=== PATIENT | female | born 1960 ===

== ENCOUNTER 2017-02-23 07:45 | Inpatient (IN) ==
[2017-02-23] MEDS ORDERED: ONDANSETRON 4 MG/2 ML VIAL IV PRN (10:26)
[2017-02-23] MEDS ORDERED: ACETAMINOPHEN 325 MG TABLET PO PRN (10:26)
[2017-02-23] MEDS ORDERED: DEXTROSE 50% 25 GM/50 ML VIAL IV PRN (10:26)
[2017-02-23] MEDS ORDERED: LACTULOSE 20 GM/30 ML UDCUP PO PRN (10:26)
[2017-02-23] MEDS ORDERED: GLUCAGON 1 MG VIAL IM PRN (10:26)
[2017-02-23] MEDS ORDERED: ZALEPLON 5 MG CAPSULE PO PRN (10:26)
[2017-02-23] MEDS ORDERED: SODIUM CHLORIDE 0.9% 1,000 ML IV SCH (10:30)
--- NOTE | 2017-02-23 10:44 | Hospitalist History & Physical ---
<Roberto Taylor - Last Filed: 02/23/17 10:42> Assessment and Plan (1) Dyspnea Status: Acute Assessment and plan: Rule out pulmonary embolus versus CHF. Obtain chest x-ray, echocardiogram, VQ scan, BNP. Patient's already been given a loading dose of Lovenox at [facility]. She is currently satting 98% on 2 L of O2 per nasal cannula. Current Visit: Yes (2) Acute kidney injury Status: Acute Assessment and plan: External facility records show elevated creatinine ranging from 1.6-4.2 over the course of 2 days. Start gentle IV hydration. We are holding metformin at this time. Obtain BMP. Current Visit: Yes (3) UTI (urinary tract infection) Status: Acute Assessment and plan: Repeat urinalysis. Patient does have an elevated white count. External facility records of 13.3. Will start on renal adjusted ciprofloxacin. Current Visit: Yes (4) Hypertension Status: Acute Assessment and plan: Patient was initially hypotensive at the external facility. On admission, the patient has a BP of 116/73. Will continue to monitor. Patient does have home prescription for amlodipine and hydrochlorothiazide. Current Visit: No (5) Diabetes mellitus Status: Acute Assessment and plan: Accu-Cheks ACHS. Sliding scale insulin per protocol. Current Visit: No (6) History of breast cancer Status: Acute Assessment and plan: Patient is followed by Dr. Cantu. 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 She does take tamoxifen daily. We are holding the tamoxifen due to the risk for blood clots at this time. Current Visit: Yes History of Present Illness Chief complaint: Shortness of breath History of present illness: Ms. Brewster is a 57 year old [place] female with a past medical history significant for ductal carcinoma in situ with left mastectomy, diabetes mellitus and hypertension who presents as a direct transfer from [facility] for further evaluation of shortness breath. Patient is followed by Dr. Cantu for breast cancer and currently takes tamoxifen daily. She presented to the [facility] ER a few days ago and was admitted to the inpatient unit with weakness, acute kidney injury, hypokalemia and tachycardia. With a suspicion of pulmonary embolus and without modality to confirm diagnosis, the patient was transferred here to [facility] for further evaluation. On admission, patient is stable however noticeably short of breath. She denies any chest pain, nausea vomiting, headache or blurry vision, edema. She has pain on inspiration but does find it difficult to breathe. Labs are pending at this time. We will proceed with PE workup to include echocardiogram , VQ scan, chest x-ray. This case has been discussed with Dr. Rangel, admitting physician, and the patient has been admitted to the CCU for close observation and treatment. Patient is a full code. There is no advanced directive on file , however the patient is coherent and acts as her own healthcare proxy. Home meds have been reviewed and reconciled. Home Medications Medication Instructions Recorded Confirmed Type Aspirin [Ecotrin] 81 mg PO DAILY 11/16/15 12/09/15 History Glyburide/Metformin HCl 1 each PO TID 11/16/15 12/09/15 History [Glyburide-Metformin 5-500 mg] Insulin Detemir [Levemir] 20 unit SUBCUT BEDTIME 11/16/15 12/09/15 History Tamoxifen Citrate 20 mg PO DAILY 11/16/15 12/09/15 History amLODIPine [Norvasc] 10 mg PO DAILY 11/16/15 12/09/15 History hydroCHLOROthiazide 25 mg PO BID 11/16/15 12/09/15 History [Hydrochlorothiazide] Lisinopril 1 tablet PO DAILY 12/09/15 12/09/15 History Multivitamin (Centrum) [Centrum 1 tablet PO DAILY 12/09/15 12/09/15 History Tab] Vancomycin Inj 1,250 mg IV Q24H vial 12/15/15 Rx Allergies Allergy/AdvReac Type Severity Reaction Status Date / Time codeine Allergy HIVES Verified 12/02/14 11:36 Penicillins Allergy HIVES Verified 12/02/14 11:36 acetaminophen AdvReac RASH Verified 12/08/15 13:58 [From Darvocet-N] propoxyphene AdvReac RASH Verified 12/02/14 11:21 [From Darvocet-N] Medical,Surgical,& Family Hx - Medical History Cardio: History of: Hypertension Endocrine: History of: Diabetes Mellitus (IDDM) Reproductive: History of: Breast Cancer (Ductal carcinoma in situ) - Surgical History Reproductive Surgeries: Surgical HX of;: Breast Surgery (Left mastectomy) - Family History Family History: Reports;: Family Cancer, Family Heart Disease, Family Hypertension - Social History Smoking Status: Never smoker Frequency of Alcohol Use: None Type of Drug Use: None Marital Status: Single Lives With:: Alone Functional capacity: independent ambulation - Constitutional Constitutional: Present: fatigue, weakness. Absent: fever(s), headache(s) - EENT Eyes: Absent: blurry vision, loss of vision - Cardiovascular Cardiovascular: Present: dyspnea, dyspnea on exertion. Absent: chest pain at rest, chest pain with activity, diaphoresis, edema, radiating jaw, neck or arm pain, palpitations - Respiratory Respiratory: Present: dyspnea, dyspnea on exertion. Absent: cough, hemoptysis, wheezing, pain on inspiration - Gastrointestinal Gastrointestinal: Absent: abdominal pain, change in bowel habits, constipation, diarrhea, nausea, vomiting - Genitourinary Genitourinary: Absent: difficulty urinating, hematuria - Musculoskeletal Musculoskeletal: Absent: back pain - Neurological Neurological: Absent: confusion, dizziness, syncope - Psychiatric Psychiatric: Absent: anxiety, depression - Endocrine Endocrine: Absent: cold intolerance, heat intolerance - Hematologic/Lymphatic Hematologic/Lymphatic: Absent: easy bleeding, easy bruising Exam - Constitutional Vitals: Period Temp Pulse Resp BP Sys/Hernandes Pulse Ox Last 24 Hr 24 General appearance: mild distress, over weight - Head Head exam: Present: normal inspection, normocephalic, atraumatic - Eye Eye exam: Present: EOMI Pupils: Present: MARIO - ENT ENT exam: Present: normal exam, normal external ear exam - Neck Neck exam: Present: normal inspection. Absent: lymphadenopathy, tenderness - Respiratory Respiratory exam: Present: decreased breath sounds. Absent: rales, wheezes - Cardiovascular Cardiovascular exam: Present: tachycardia. Absent: carotid bruit, gallop, irregular rhythm - GI/Abdominal GI/Abdominal exam: Present: normal bowel sounds, soft. Absent: ascites, distended, mass, tenderness, rebound - Extremities Exam Extremities exam: Present: normal inspection - Back Exam Back exam: Present: normal inspection - Neurological Exam Neurological exam: Present: alert, oriented X3, CN II-XII intact, reflexes normal - Psychiatric Psychiatric exam: Present: normal affect, normal mood - Skin Skin exam: Present: normal color, warm, intact, other (Clammy). Absent: cyanosis Results - Labs Lab Results: I have reviewed the past 24 hour labs Labs: External facility record labs include: WBC 13.3 hematocrit 33.2 platelets 87 creatinine 4.2 - Diagnostic Findings Procedure: Chest x-ray: pending <Zoë Rangel - Last Filed: 02/23/17 12:53> Assessment and Plan (1) CHF exacerbation Status: Acute Assessment and plan: Elevated BNP, echocardiogram now, Lasix 80 mg IV twice daily. VQ scan shows no evidence of PE, venous Dopplers pending Current Visit: Yes (2) Thrombocytopenia Status: Acute Assessment and plan: PTT, PT, INR, d-dimer, fibrinogen, consult Giuseppe, avoid lovenox Current Visit: Yes (3) Leukocytosis Status: Acute Assessment and plan: blood cx times two, levaquin, have to avoid meropenem due to thrombocytopenia Current Visit: Yes (4) Acute renal failure Status: Acute Assessment and plan: most likely chronic, seen by Dr. Doyle in past, [place]icar[place] tid, us renal Current Visit: Yes (5) History of breast cancer Status: Acute Assessment and plan: will restart tamoxifen if okay with dr. Chin and US negative for dvt Current Visit: Yes (6) Diabetes mellitus Status: Acute Assessment and plan: stop metformin, ISC Current Visit: No (7) Hypertension Status: Acute Assessment and plan: hold off meds for now Current Visit: No (8) UTI (urinary tract infection) Status: Acute Assessment and plan: growing enterobacter sensitive to cipro, will use levaquin Current Visit: Yes History of Present Illness History of present illness: Ms. Brewster is a 57 year old female seen and examined. Very SOB, went into hospital on Saturday, is on tamoxifen for breast cancer, being treated for UTI with entrobacter sensitive to cipro. - EENT Nose, mouth and throat: Absent: headache(s), sore throat Exam - Constitutional Vitals: Period Temp Pulse Resp BP Sys/Hernandes Pulse Ox Last 24 Hr 97.5 F 112-116 24-26 138/79 97 - Eye Eye exam: Absent: scleral icterus Pupils: Present: normal accommodation - Neck Neck exam: Absent: thyromegaly Results - Labs CBC & BMP: 02/23/17 10:56 02/23/17 10:56 - EKG EKG shows: tachycardia, sinus rhythm - Diagnostic Findings Procedure: Chest x-ray: report reviewed by me (pul edema )
--- NOTE | 2017-02-23 10:47 | EKG Report ---
Stationary ECG Study 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
[2017-02-23] MEDS ORDERED: CIPROFLOXACIN INJ 200 MG in PREMIX 1 EACH IV SCH (11:00)
[2017-02-23 11:06] LABS: Amorphous Crystals,Urine Occasional /HPF (Few); Apearance,Urine CLOUDY (Clear); Bacteria,Urine Occasional /HPF (Few); Bilirubin,Urine Negative (Negative); Blood, Urine Moderate mg/dL (Negative); Glucose,Urine (UA) 50 mg/dL (Negative); Ketones,Urine Negative (Negative); Mucus,Urine Occasional /LPF (Occasional); Nitrite,Urine Negative (Negative); Protein,Urine 30 MG/DL; Squamous Epithelial Cell,Urine Occasional /HPF (0-10); Urine Color Yellow (Yellow); Urine Specific Gravity 1.017 (1.001-1.035); Urine Urobilinogen < 2.0 EU/DL (0.2-1.0); WBC,Urine 2 /HPF (0-6)
--- NOTE | 2017-02-23 11:13 | XRay Report ---
Portable chest Date: 02/23/2017 Clinical history: Shortness of breath Comparison: 07/10/2011 Technique: Portable AP sitting chest Findings: The heart is normal in size with progressive parenchymal findings especially at the lung bases. Postoperative findings a left axilla with stable mediastinum and osseous structures. Impression: Minimal atelectasis/infiltration/edema at the lung bases. PROCEDURE INTERPRETED AT [facility] DEPARTMENT OF RADIOLOGY Final Report Signed by: Dr. Odalys Albrecht
[2017-02-23 11:18] LABS: Basophils # 0.1 10*3/uL (0.0-0.2); Basophils % 0.5 % (0.0-0.8); Hematocrit 28.2 VOL% (35.7-47.0); Hemoglobin 9.9 GM/DL (12.0-16.0); Immature Granulocytes % 9.1 %; Immature Granulocytes Absolute 2.51 #; Lymphocytes # 0.9 10*3/uL (1.4-4.0); Lymphocytes % 3.3 % (21.3-54.2); Mean Corpuscular HGB Conc 35.1 GM/DL (32-36); Mean Corpuscular Hemoglobin 30 PG (27-34); Mean Corpuscular Volume 84.7 FL (87-102); Mean Platelet Volume 13.3 FL (9.6-12.0); Monocytes # 1.6 10*3/uL (0.11-0.8); Monocytes % 5.8 % (1.7-12.7); Neutrophils # 22.5 10*3/uL (1.4-7.4); Neutrophils % 81.3 % (38.7-73.9); Red Blood Count 3.33 MC/CUMM (3.8-5.5); Red Cell Distribution Width 12.9 % (9.3-17.3); White Blood Count 27.7 T/CUMM (4-12)
[2017-02-23 11:19] LABS: Platelet Count 36 T/CUMM (130-400)
[2017-02-23 11:44] LABS: Band Neutrophils 5 % (0-10); Hypochromasia 1+; Lymphocytes 5 % (20-55); Myelocytes 1 %; Platelet Estimate Decreased; Segmented Neutrophils 85 % (50-85); Total Cells Counted 100
[2017-02-23 11:45] LABS: Microcytosis Slight
[2017-02-23 11:48] LABS: Alanine Aminotransferase 22 U/L (13-56); Albumin 2.3 G/DL (3.4-5.0); Alkaline Phosphatase 164 U/L (45-117); Aspartate Amino Transferase 24 U/L (0-37); Bilirubin,Total < 0.39 MG/DL (0.2-1.0); Blood Urea Nitrogen 63 MG/DL (7-18); Calcium 7.2 MG/DL (8.5-10.1); Glucose 378 MG/DL (74-106); Magnesium 1.5 MG/DL (1.8-2.4); Osmolality,Calculated 295.7 MOS/KG (273-304); Potassium 3.8 MMOL/L (3.5-5.1); Sodium 131 MMOL/L (136-145); Thyroid Stimulating Hormone 0.738 uIU/ml (0.358-3.74); Total Protein 5.3 G/DL (6.4-8.3)
--- NOTE | 2017-02-23 12:02 | Nuclear Medicine Report ---
Exam: Lung scan ventilation/perfusion Date: 02/23/2017 Comparison: Chest x-ray 02/23/2017 Reason: Shortness of breath Technique: 40 mCi of technetium 99m DTPA aerosolized was inhaled with injection of 5 mCi of technetium 99m MAA . Limited 3 view Ventilation and perfusion images of both lungs were acquired. Findings: Trapping on the isotope centrally in the lungs with multiple peripheral ventilation defects. No unmatched perfusion defects are identified. The perfusion defects are smaller than the ventilation defects. Impression: Limited three-view low probability lung scan. PROCEDURE INTERPRETED AT [facility] DEPARTMENT OF RADIOLOGY Final Report Signed by: Dr. Odalys Albrecht
[2017-02-23 12:18] LABS: Free T4 (Free Thyroxine) 1.81 NG/DL (0.76-1.46); Troponin I Only < 0.015 NG/ML (0.00-0.045)
[2017-02-23] MEDS: INSULIN REGULAR 100 UNIT/ML SUBCUT SCH ×3 (12:20→20:20)
[2017-02-23] MEDS ORDERED: MAGNESIUM SULF RIDER 2 GM in PREMIX 1 EACH IV ONE (12:44)
[2017-02-23 12:56] LABS: INR 1.1; PT Patient Result 11.9 SECS
[2017-02-23] MEDS: FUROSEMIDE 40 MG/4 ML VIAL IV SCH ×2 (13:02→16:48)
[2017-02-23 13:05] LABS: D-Dimer 4.9 MG/L FEU; Partial Thromboplastin Time 43.8 SECS (0-40)
[2017-02-23] MEDS: FAMOTIDINE 20 MG TABLET PO SCH ×2 (13:09→20:21)
--- NOTE | 2017-02-23 13:32 | EKG Report ---
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
--- NOTE | 2017-02-23 13:40 | Ultrasound Report ---
Exam: US renal Bilateral Date: 02/23/2017 12:37 PM Comparison: 12/09/2015 Indication: Acute versus chronic renal failure Technique:[Multiple real-time scans were obtained of the kidneys. Ultrasound images were captured and stored.] Findings: Right kidney measures 99 x 49 x 46 mm. Right kidney measured 115 mm in length on the previous exam. Left kidney measures 112 x 56 x 53 mm. Left kidney measured 116 mm in length on the previous exam. Minimal right perinephric fluid. Minimal left hydronephrosis. No definite masses. Osman catheter in decompressed urinary bladder. Impression: Minimal cortical loss in the kidneys with no masses. Minimal right perinephric fluid and minimal left hydronephrosis. PROCEDURE INTERPRETED AT [facility] DEPARTMENT OF RADIOLOGY Final Report Signed by: Dr. Odalys Albrecht
[2017-02-23] MEDS: LEVOFLOXACIN INJ 500 MG in PREMIX 1 EACH IV SCH (14:21)
[2017-02-23] MEDS: SODIUM BICARBONATE 650 MG TABLET PO SCH ×2 (15:26→20:21)
[2017-02-24 03:41] LABS: Eosinophils % 0.1 % (0.00-10.9); Hematocrit 28.1 VOL% (35.7-47.0); Hemoglobin 10.1 GM/DL (12.0-16.0); Immature Granulocytes % 17.7 %; Immature Granulocytes Absolute 5.23 #; Lymphocytes # 1.4 10*3/uL (1.4-4.0); Lymphocytes % 4.8 % (21.3-54.2); Mean Corpuscular HGB Conc 35.9 GM/DL (32-36); Mean Corpuscular Hemoglobin 29 PG (27-34); Mean Corpuscular Volume 81.4 FL (87-102); Mean Platelet Volume 13.3 FL (9.6-12.0); Monocytes # 1.1 10*3/uL (0.11-0.8); Monocytes % 3.8 % (1.7-12.7); Neutrophils # 21.8 10*3/uL (1.4-7.4); Neutrophils % 73.6 % (38.7-73.9); Red Blood Count 3.45 MC/CUMM (3.8-5.5); Red Cell Distribution Width 12.7 % (9.3-17.3); White Blood Count 29.6 T/CUMM (4-12)
[2017-02-24 03:48] LABS: Platelet Count 28 T/CUMM (130-400)
[2017-02-24 04:14] LABS: Calcium 7.3 MG/DL (8.5-10.1); Potassium 3.1 MMOL/L (3.5-5.1); Risk Ratio 7.23; VLDL CHOLESTEROL 45.8 MG/DL
[2017-02-24 05:25] LABS: Band Neutrophils 2 % (0-10); Burr Cells Slight; Hypochromasia 1+; Lymphocytes 4 % (20-55); Ovalocytes Slight; Platelet Estimate Decreased; Segmented Neutrophils 91 % (50-85); Total Cells Counted 100
[2017-02-24 05:26] LABS: Microcytosis Slight
--- NOTE | 2017-02-24 07:09 | EKG Report ---
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
[2017-02-24] MEDS ORDERED: ENOXAPARIN 40 MG/0.4 ML SYRINGE SUBCUT SCH (08:00)
[2017-02-24] MEDS: INSULIN REGULAR 100 UNIT/ML SUBCUT SCH ×4 (08:42→20:33)
[2017-02-24] MEDS ORDERED: ENOXAPARIN 30 MG/0.3 ML SYRINGE SUBCUT SCH (09:00)
[2017-02-24] MEDS ORDERED: PANTOPRAZOLE 40 MG TABLET PO SCH (09:00)
[2017-02-24] MEDS: FUROSEMIDE 40 MG/4 ML VIAL IV SCH ×2 (09:17→15:43)
[2017-02-24] MEDS: FAMOTIDINE 20 MG TABLET PO SCH ×2 (09:19→20:33)
[2017-02-24] MEDS: SODIUM BICARBONATE 650 MG TABLET PO SCH ×3 (09:19→20:33)
[2017-02-24] MEDS: POTASSIUM CHLORIDE 20 MEQ TABLET PO SCH ×2 (09:27→12:26)
[2017-02-24] MEDS ORDERED: INSULIN GLARGINE 100 UNIT/ML SUBCUT SCH (09:30)
--- NOTE | 2017-02-24 09:30 | Hospitalist Progress Note ---
Assessment and Plan (1) CHF exacerbation Status: Acute Assessment and plan: decrease lasix 40 mg IV every 12 hours, avoid calvin or arb due to renal failure, would start low dose of coreg when blood pressure can tolerate Current Visit: Yes (2) Thrombocytopenia Status: Acute Assessment and plan: Dr. Chin consulted, PTT 43.8, no evidence of DIC or TTP, chronically seen by Dr. Cantu. Also concerned about elevated WBC may be due to stress Current Visit: Yes (3) Leukocytosis Status: Acute Assessment and plan: blood cx times two normal, cont levaquin but I dont think she is infected. Will ask Dr. Cantu for opinion Current Visit: Yes (4) Acute renal failure Status: Acute Assessment and plan: chronic based on renal us, cont to monitor Current Visit: Yes (5) History of breast cancer Status: Acute Assessment and plan: Hold tamoxifen due to low plt, will restart when okay with Dr. Cantu Current Visit: Yes (6) Diabetes mellitus Status: Acute Assessment and plan: Hgb A1c 9.1, hold lantus, isc Current Visit: No (7) Hypertension Status: Acute Assessment and plan: hold off meds for now Current Visit: No (8) UTI (urinary tract infection) Status: Acute Assessment and plan: growing enterobacter sensitive to cipro at [facility], cont levaquin, repeat urine cx gram negative rods Current Visit: Yes Hospitalist: Subjective Interval history: Patient feels much better today. She is currently on 2 L. Her breathing is much improved since diuresis. I will transfer her up to telemetry today. Exam - Constitutional Vitals: Period Temp Pulse Resp BP Sys/Hernandes Pulse Ox Last 24 Hr 97.1 F-98.1 F 87-116 18-36 99-138/62-81 95-100 Exam: Heart Rate-[RRR] Lungs-[Clear but still alittle diminished] GI-[+bs soft, NT] Ext-[no edema] Neuro [Motor 5/5], [alert and oriented times 3] psych [normal mood and affect] General [no acute distress] Results - Labs CBC & BMP: 02/24/17 03:03 02/24/17 03:03 Lab Results: I have reviewed the past 24 hour labs - Diagnostic Findings Procedure: Ultrasound: report reviewed by me (Cortical loss and kidneys no masses mild left-sided hydronephrosis.)
--- NOTE | 2017-02-24 10:13 | Oncology Progress Note ---
Oncology Subjective PN Interval history: Consult for thrombocytopenia. Patient admitted with shortness of breath. She has uncontrolled diabetes and what appears to be chronic kidney disease. She has anemia which may be directly attributed to the the decreased glomerular filtration rate. She is followed by Dr. Cantu for history of breast cancer and is currently receiving oral tamoxifen. I have reviewed labs from the electronic health record 2016 and her platelets were actually elevated at that time. She denies bleeding or bruising. She has what appears to be a leukemoid reaction with a left shifted differential with a white blood count currently 29, 000. Cardiac BNP is elevated. The patient reports improvement in her overall status since the time of admission. I recommend to continue with current therapy and continue to follow daily CBCs. She does not require platelet transfusion at this time. Exam - Constitutional Vitals: Period Temp Pulse Resp BP Sys/Hernandes Pulse Ox Last 24 Hr 97.1 F-98.1 F 87-116 18-36 99-138/62-81 95-100 Results - Labs CBC & BMP: 02/24/17 03:03 02/24/17 03:03
--- NOTE | 2017-02-24 10:29 | ECHO Report ---
Torrie Brewster Exam Date: 02/23/2017 11:25 Referring Physician: Technologist: Rut Blanchard Age: 57 Ht (in): 62 Wt (lb): 159 Gender: F Exam Location: [facility] Echo Indications: UTI, SOB, acute kidney failure, Hx. Breast CA BP: 138 / 79 HR: 116 Rhythm: sinus Tachycardia Technical Quality: IMPRESSIONS The overall ejection fraction is mildly depressed approximately 40% this is best seen in the apical views. Global hypokinesis There is what appears to be grade 1 diastolic dysfunction. Sinus tachycardia at 118 bpmTricuspid regurgitation velocities suggest a RVSP of 18 mmHg plus the right atrial pressure. MEASUREMENTS (Male / Female) Normal Values 2D ECHO LV Diastolic Diameter PLAX 3.8 cm 4.2 - 5.9 / 3.9 - 5.3 cm LV Systolic Diameter PLAX 2.4 cm LV Fractional Shortening PLAX 37.2 % IVS Diastolic Thickness 1.6 cm 0.6 - 1.0 / 0.6 - 0.9 cm LVPW Diastolic Thickness 1.1 cm 0.6 - 1.0 / 0.6 - 0.9 cm Aortic Root Diameter 2.7 cm LA Systolic Diameter LX 3.3 cm 3.0 - 4.0 / 2.7 - 3.8 cm DOPPLER TR Peak Velocity 214.0 cm/s TR Peak Gradient 18.3 mmHg FINDINGS Left Ventricle Normal left ventricular cavity size. Mild concentric left ventricular hypertrophy. The overall ejection fraction is mildly depressed approximately 40% this is best seen in the apical views. There is what appears to be grade 1 diastolic dysfunction. Right Ventricle Normal right ventricular size. Right Atrium Normal right atrial size. Left Atrium Normal left atrial size. Mitral Valve Mild mitral valve sclerosis. Mild mitral valve regurgitation. Aortic Valve Mild aortic valve sclerosis. Tricuspid Valve Morphologically normal tricuspid valve. Mild tricuspid valve regurgitation. Tricuspid regurgitation velocities suggest a RVSP of 18 mmHg plus the right atrial pressure. Pulmonic Valve Morphologically normal pulmonic valve. Pericardium No pericardial effusion. Aorta Normal size aortic root and proximal ascending aorta. Missy Moyer (Electronically Signed) Final Date: 24 February 2017 10:28
--- NOTE | 2017-02-24 10:42 | Ultrasound Report ---
Exam: Bilateral lower extremity venous Doppler ultrasound Comparison: None Clinical history: Shortness of breath, edema Technique: Duplex scan of the lower extremity veins using B-mode/grayscale scaled imaging and Doppler spectral analysis and color flow. Findings: Major venous structures of the lower extremities demonstrate a normal course and caliber. Normal color-flow study and spectral analysis. There is normal compression and augmentation of bilateral common femoral, superficial femoral and popliteal veins. The proximal bilateral greater saphenous veins appear to be patent. Impression: No evidence to suggest deep venous thrombosis within either lower extremity. Ultrasound images were captured and stored. PROCEDURE INTERPRETED AT [facility] DEPARTMENT OF RADIOLOGY Final Report Signed by: Dr. Odalys Albrecht
[2017-02-24] MEDS ORDERED: POTASSIUM CHLORIDE 20 MEQ TABLET PO ONE (11:30)
[2017-02-25 05:18] LABS: Basophils # 0.1 10*3/uL (0.0-0.2); Basophils % 0.4 % (0.0-0.8); Eosinophils # 0.1 10*3/uL (0.0-0.87); Eosinophils % 0.3 % (0.00-10.9); Hematocrit 28.2 VOL% (35.7-47.0); Hemoglobin 10.1 GM/DL (12.0-16.0); Immature Granulocytes % 0.6 %; Immature Granulocytes Absolute 0.14 #; Lymphocytes # 1.4 10*3/uL (1.4-4.0); Lymphocytes % 6.3 % (21.3-54.2); Mean Corpuscular HGB Conc 35.8 GM/DL (32-36); Mean Corpuscular Hemoglobin 29 PG (27-34); Mean Corpuscular Volume 81.5 FL (87-102); Mean Platelet Volume 13.6 FL (9.6-12.0); Monocytes # 0.8 10*3/uL (0.11-0.8); Monocytes % 3.6 % (1.7-12.7); NRBC # 0.02 10*3/uL; Neutrophils # 19.8 10*3/uL (1.4-7.4); Neutrophils % 88.8 % (38.7-73.9); Red Blood Count 3.46 MC/CUMM (3.8-5.5); Red Cell Distribution Width 13.1 % (9.3-17.3); White Blood Count 22.3 T/CUMM (4-12)
[2017-02-25 05:23] LABS: Platelet Count 28 T/CUMM (130-400)
[2017-02-25 05:50] LABS: Calcium 8.1 MG/DL (8.5-10.1)
[2017-02-25 06:04] LABS: Band Neutrophils 2 % (0-10); Hypochromasia 1+; Lymphocytes 8 % (20-55); Platelet Estimate Decreased; Segmented Neutrophils 88 % (50-85); Total Cells Counted 100
[2017-02-25 06:05] LABS: Microcytosis Slight
[2017-02-25] MEDS: SODIUM BICARBONATE 650 MG TABLET PO SCH ×3 (08:05→20:17)
[2017-02-25] MEDS: INSULIN REGULAR 100 UNIT/ML SUBCUT SCH ×4 (08:06→20:16)
[2017-02-25] MEDS: FUROSEMIDE 40 MG/4 ML VIAL IV SCH ×2 (08:06→16:19)
[2017-02-25] MEDS: POTASSIUM CHLORIDE 20 MEQ TABLET PO SCH (08:06)
[2017-02-25] MEDS: FAMOTIDINE 20 MG TABLET PO SCH ×2 (08:06→20:17)
--- NOTE | 2017-02-25 09:10 | Oncology Progress Note ---
Oncology Subjective PN Interval history: Ms. Brewster is known to me. I have been following her for stage I, grade 3 ductal carcinoma of the upper outer quadrant of her left breast diagnosed July 17, 2004. She was treated with lumpectomy and radiation with no dissection. She subsequently underwent left mastectomy in October 2014, October 14 for noninvasive breast cancer. She has been on tamoxifen 20 mg daily. At the time of her last visit, January 23, 2017, and noted that she had a rising serum creatinine. At that time I did not note any thrombocytopenia. I do note that she has been on an lisinopril and hydrochlorothiazide which apparently have not been continued. I recommend continuing to leave these medications off. Lab work today includes white cell count of 22,300 with a hemoglobin of 10.1 and a platelet count of 28,000 with an MPV above normal of 13.6 suggesting an immune component. I note that she has not had a comprehensive metabolic profile or LDH and I am ordering them now. I am also ordering an CHELSIE, serum protein electrophoresis and a serum immunoelectrophoresis. Past medical history is negative except for the problems mentioned above to include breast cancer, renal failure and now pancytopenia, except for the following problems: Hypertension Type 2 diabetes mellitus Family history is positive for coronary artery disease in her father, diabetes mellitus, colon cancer, hypertension and stroke in her mother. Social history: She has never smoked. ROS Gen.: No history of focal weakness or weight gain or weight loss. Eyes: No history of chronic disease, infections or visual loss. ENT: No history of chronic infections, epistaxis, chronic sore throat Lungs: No history of asthma, emphysema, hemoptysis, chronic pleurisy or long- term or chronic infections Cardiovascular: She has had gradually worsening dyspnea with exertion and at rest over the last few weeks. Prior to that she has no history of angina, coronary artery disease, congestive heart failure, cardiovascular surgery or DVT /VTE GI: No history of upper or lower GI bleeding, melena, dysphagia, odynophagia, liver disease, gallbladder disease or pancreatic disease. : No history of kidney stones, chronic kidney infections or hematuria. Musculoskeletal: No history of chronic bone or joint pain or focal muscle atrophy or bone or joint deformity. Neurologic: No history of seizures, convulsions or paralysis. Psychiatric: No history of chronic psychiatric illness or psychiatric medications. Lymphatic: No history of significant or long-term lymphadenopathy Hematologic: She has had mild pancytopenia in the past but nothing this severe. CBC that I checked January 23, 2017 at my office includes a platelet count of 264, 000 with a white cell count was 6690 and a hemoglobin of 11.0. Skin: No history of chronic skin infections or rashes or significant skin lesions. Physical examination: General: The patient appears to be well-developed, well-nourished and in no acute distress. Eyes: Normal lids and conjunctivae. ENT: Her oral mucosa and pharynx are normal. Her trachea is midline and she has no neck masses. Lungs: Breath sounds are relatively normal throughout without rubs, rales or rhonchi. Cardiovascular: Her heart rhythm is regular without murmur, gallop or rub. I see no edema of the lower extremities. Abdomen: There are no abdominal masses, organomegaly, distention, tenderness or ascites. Breasts: She has a left mastectomy. There are no breast masses. Musculoskeletal: There is no focal muscle atrophy or bone or joint deformity. Neurologic: Cranial nerves II through XII are intact. There are no focal neurologic deficits. Nodes: There is no cervical, supraclavicular or axillary adenopathy. Impression: Thrombocytopenia that is probably medication related although this could be immune thrombocytopenia. I have ordered additional blood testing. Status post left mastectomy for breast cancer The patient also has a history of chronic renal failure. I note that her serum creatinine is 3.6 on this admission. 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 She has been somewhat noncompliant about arranging this to the best of my knowledge. Exam - Constitutional Vitals: Period Temp Pulse Resp BP Sys/Hernandes Pulse Ox Last 24 Hr 96.3 F-98.8 F 74-97 18- 105-134/69-75 98-100 Results - Labs CBC & BMP: 02/25/17 04:37 02/25/17 09:49
[2017-02-25 10:40] LABS: Albumin 2.1 G/DL (3.4-5.0); Calcium 8.4 MG/DL (8.5-10.1); Osmolality,Calculated 303.2 MOS/KG (273-304); Potassium 4.8 MMOL/L (3.5-5.1); Total Protein 5.2 G/DL (6.4-8.3)
--- NOTE | 2017-02-25 11:45 | Hospitalist Progress Note ---
Assessment and Plan (1) CHF exacerbation Status: Acute Assessment and plan: 1)acute systolic CHF on chronic- diuresing and symptoms improving. She is feeling better. 2)CKD- she is seeing Dr Koo as an outpatient, the last time a week or so ago. He plans to follow up with her in 6 months. 3)thrombocytopenia- platelets 28,000. Dr Cantu her oncologist is working this up. 4)leukocytosis- about the same. no fever. blood cultures negative. on levaquin. perhaps related to her low platelets. 5)UTI- on levaquin- Ucx growing GNR, recent positive ucx at [facility] was for enterobacter. 6)DM- HGB A1C- 9.1. on SSI. glucose this morning over 300. Needs less insulin than before because of her renal failure- change her to half previous lantus dose with 10U a day. 7)transfer from [facility] after a couple of days there. Current Visit: Yes (2) Acute renal failure Status: Acute Current Visit: Yes (3) History of breast cancer Status: Acute Current Visit: Yes (4) UTI (urinary tract infection) Status: Acute Current Visit: Yes (5) Thrombocytopenia Status: Acute Current Visit: Yes (6) Leukocytosis Status: Acute Current Visit: Yes Hospitalist: Subjective Interval history: Mrs Brewster is feeing ok this morning, and denies shortness of breath or pain. She reports her LE edema has diminished. Exam - Constitutional Vitals: Period Temp Pulse Resp BP Sys/Hernandes Pulse Ox Last 24 Hr 96.3 F-98.8 F 78-97 18-25 105-135/69-78 98-100 General appearance: normal weight, no acute distress (on 4 L NC) - Head Head exam: Present: normocephalic, atraumatic - Eye Eye exam: Present: EOMI. Absent: scleral icterus - ENT ENT exam: Present: normal external ear exam, normal oropharynx - Respiratory Respiratory exam: Present: rales (few rales at bases) - Cardiovascular Cardiovascular exam: Present: regular rate and rhythm - GI/Abdominal GI/Abdominal exam: Present: normal bowel sounds, soft. Absent: tenderness - Extremities Exam Extremities exam: Present: edema (lower extremites) - Neurological Exam Neurological exam: Present: alert, oriented X3 - Skin Skin exam: Present: warm, dry. Absent: petechiae, rash Results - Labs CBC & BMP: 02/25/17 04:37 02/25/17 09:49 Lab Results: I have reviewed the past 24 hour labs
[2017-02-25 12:00] LABS: Immunoglobulin A (Chem) 140 MG/DL (70-400); Immunoglobulin G (Chem) 946 MG/DL (700-1600); Immunoglobulin M (Chem) 94 MG/DL (40-230); Total Protein (Chem) 5.2 G/DL (6.4-8.3)
[2017-02-25] MEDS: LEVOFLOXACIN INJ 500 MG in PREMIX 1 EACH IV SCH (13:32)
--- NOTE | 2017-02-25 14:48 | Nephrology Consult Note ---
History of Present Illness Chief complaint: Creat 3 History of present illness: Ms. Brewster is a 57 year old female with diabetes mellitus since year 1999. She presents with a creatinine of 3.6 after having a creatinine of approximately 1 1 year ago. 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 She took lisinopril for her hypertension up until approximately 1 month ago and was taking hydrochlorothiazide up until she came into the hospital. Past history is for the diabetes, renal abscess, and breast cancer. She has been found to be thrombocytopenic and anemic with a serum albumin of 2.1. On exam her chest is clear and her heart without rub or gallop she has trace to 1+ peripheral edema. Renal ultrasound demonstrates no evidence of obstruction Impression stage III to IV chronic kidney disease likely due to diabetic nephropathy but we worry about an acute insult since the renal function is declined fairly rapidly #2 thrombocytopenia #3 hypoalbuminemia possibly secondary to proteinuria and nephrotic syndrome Plan we will quantitate urine protein. Follow renal function. I agree with giving her some time off lisinopril though if it were causative I think that her creatinine would be much improved by now. Home Medications Medication Instructions Recorded Confirmed Type Aspirin [Ecotrin] 81 mg PO DAILY 11/16/15 02/23/17 History Glyburide/Metformin HCl 2 each PO BID 11/16/15 02/23/17 History [Glyburide-Metformin 5-500 mg] Insulin Detemir [Levemir] 20 unit SUBCUT BEDTIME 11/16/15 02/23/17 History Tamoxifen Citrate 20 mg PO DAILY 11/16/15 02/23/17 History amLODIPine [Norvasc] 10 mg PO DAILY 11/16/15 02/23/17 History hydroCHLOROthiazide 25 mg PO DAILY 11/16/15 02/23/17 History [Hydrochlorothiazide] Multivitamin (Centrum) [Centrum 1 tablet PO DAILY 12/09/15 02/23/17 History Tab] Allergies Allergy/AdvReac Type Severity Reaction Status Date / Time codeine Allergy HIVES Verified 12/02/14 11:36 Penicillins Allergy HIVES Verified 12/02/14 11:36 acetaminophen AdvReac RASH Verified 12/08/15 13:58 [From Darvocet-N] propoxyphene AdvReac RASH Verified 12/02/14 11:21 [From Darvocet-N] Medical,Surgical,& Family Hx - Medical History Cardio: History of: Hypertension Neurology: No history of: Brain Aneurysm, Cerebral Hemorrhage, Cerebrovascular Accident , Cerebral Palsy, Dementia, Migraine, Multiple Sclerosis, Parkinson's Disease, Peripheral Neuropathy, Seizures, TIA, Vertigo, Neurologocal Cancer Endocrine: History of: Diabetes Mellitus (IDDM), Diabetes Mellitus (NIDDM) Renal: History of: Renal Problems No history of: Renal (Kidney) Cancer, Dialysis, Renal Failure Genitourinary: History of: Recurring Urinary Tract Infections No history of: Bladder Problem, Kidney Stones, Genitourinary Cancer, Problems Reproductive: History of: Breast Cancer (Ductal carcinoma in situ) - Surgical History Cardiac Surgeries: Patient Denies: Femoral-Popliteal Bypass Graft, Cardiac Catheterization, Cardiac Surgery, Carotid Endarterectomy, Internal Defibrillator, Vascular Access Devices Thoracic Surgeries: Patient denies;: Kidney (Renal Surgery), Lithotripsy, Nephrectomy, Organ Transplant Neurologic Surgeries: Patient denies: Brain Aneurysm, Cerebral Hemorrhage, Neurologic Surgery HEENT Surgeries: Patient denies: Carotid Endarterectomy Abdominal Surgeries: Patient denies: Splenectomy Reproductive Surgeries: Surgical HX of;: Breast Surgery (Left mastectomy), Hysterectomy (PARTIAL) Patient denies;: Cystoscopy, Genitourinary Surgery - Family History Family History: Reports;: Family Cancer, Family Heart Disease, Family Hypertension - Social History Smoking Status: Never smoker Frequency of Alcohol Use: None Type of Drug Use: None Review of Systems 12 point system: reviewed and no additional remarkable complaints except as stated Exam - Vital Signs Vital signs: Period Temp Pulse Resp BP Sys/Hernandes Pulse Ox Last 24 Hr 96.9 F-98.8 F 78-97 18-20 112-135/69-78 98-100 - General Appearance General appearance: well-developed, well-nourished, appears started age Neck: no JVD, no thyromegaly, no carotid bruit, supple Respiratory: no kyphosis, no scoliosis Cardiology: no murmurs, no rub, no gallops, no edema, regular rate, regular rhythm, normal S1, normal S2 Gastrointestinal: normoactive bowel sounds Integumentary: no rash, warm and dry Neurologic: no focal deficit, no asterixis, alert and oriented x3, reflexes 2+ and symmetric, gait normal, strength 5/5 Musculoskeletal: no deformities, no erythema, no cyanosis, no clubbing Psychiatric: mood/affect appropriate, cooperative Results - Labs CBC & BMP: 02/25/17 04:37 02/25/17 09:49 Assessment and Plan - Time spent with patient Time spent with patient: Greater than 30 minutes (1) CKD (chronic kidney disease) Status: Acute Assessment and plan: Diabetic nephropathy versus other etiology Current Visit: Yes (2) Thrombocytopenia Status: Acute Current Visit: Yes (3) Hypoalbuminemia Status: Acute Assessment and plan: Quantitate proteinuria Current Visit: Yes
[2017-02-25 15:56] LABS: Apearance,Urine CLEAR (Clear); Bacteria,Urine Occasional /HPF (Few); Bilirubin,Urine Negative (Negative); Blood, Urine Small mg/dL (Negative); Glucose,Urine (UA) 150 mg/dL (Negative); Ketones,Urine Negative (Negative); Mucus,Urine Occasional /LPF (Occasional); Nitrite,Urine Negative (Negative); Protein,Urine Negative; RBC,Urine 2 /HPF (0-4); Squamous Epithelial Cell,Urine Occasional /HPF (0-10); Urine Color Straw (Yellow); Urine Specific Gravity 1.006 (1.001-1.035); Urine Urobilinogen < 2.0 EU/DL (0.2-1.0); WBC,Urine 11 /HPF (0-6)
[2017-02-26 05:17] LABS: Basophils % 0.2 % (0.0-0.8); Eosinophils # 0.1 10*3/uL (0.0-0.87); Eosinophils % 0.5 % (0.00-10.9); Hematocrit 28.6 VOL% (35.7-47.0); Immature Granulocytes % 0.9 %; Lymphocytes # 0.9 10*3/uL (1.4-4.0); Lymphocytes % 7.9 % (21.3-54.2); Mean Corpuscular Hemoglobin 29 PG (27-34); Mean Corpuscular Volume 83.1 FL (87-102); Mean Platelet Volume 12.5 FL (9.6-12.0); Monocytes # 0.8 10*3/uL (0.11-0.8); Monocytes % 6.7 % (1.7-12.7); Neutrophils # 9.5 10*3/uL (1.4-7.4); Neutrophils % 83.8 % (38.7-73.9); Red Blood Count 3.44 MC/CUMM (3.8-5.5); Red Cell Distribution Width 13.1 % (9.3-17.3); White Blood Count 11.3 T/CUMM (4-12)
[2017-02-26 05:19] LABS: Platelet Count 36 T/CUMM (130-400)
[2017-02-26 05:41] LABS: Eosinophils 2 % (0-10); Hypochromasia 1+; Lymphocytes 7 % (20-55); Nucleated Red Blood Cells 1 (0-5); Ovalocytes Slight; Platelet Estimate Decreased; Segmented Neutrophils 88 % (50-85); Total Cells Counted 100
[2017-02-26 05:42] LABS: Microcytosis Slight
[2017-02-26 05:50] LABS: Calcium 8.2 MG/DL (8.5-10.1); Osmolality,Calculated 299.2 MOS/KG (273-304); Potassium 4.5 MMOL/L (3.5-5.1)
[2017-02-26 05:53] LABS: Albumin 2.1 G/DL (3.4-5.0); Bilirubin,Total 0.6 MG/DL (0.2-1.0); Calcium 8.2 MG/DL (8.5-10.1); Osmolality,Calculated 299.2 MOS/KG (273-304); Potassium 4.4 MMOL/L (3.5-5.1); Total Protein 5.4 G/DL (6.4-8.3)
--- NOTE | 2017-02-26 07:34 | Oncology Progress Note ---
Oncology Subjective PN Interval history: I follow this patient for breast cancer. She has had no evidence of recurrence. She was admitted with congestive heart failure and in the process of evaluating the patient she was found to have anemia and thrombocytopenia. I had previously suspected that she had thrombocytopenia due to some of her medications. She evidently actually stopped the lisinopril about a month ago at my instruction. She is not always that compliant. Blood work today includes: White cell count of 11,300. , hemoglobin is 10.0, Platelet count 36,000 today, up from 28,[address] Ambriz is seen her for renal failure that is probably related to diabetes mellitus. Her serum creatinine is 3.4 today. We are continuing to workup her thrombocytopenia. Additional lab work that I have ordered includes: Serum protein electrophoresis is probably normal but interpretation has not been rendered CHELSIE is pending Exam - Constitutional Vitals: Period Temp Pulse Resp BP Sys/Hernandes Pulse Ox Last 24 Hr 96.9 F-100.3 F 81-104 18-20 118-135/58-79 98-100 Results - Labs CBC & BMP: 02/26/17 05:01 02/26/17 05:01
[2017-02-26] MEDS: INSULIN REGULAR 100 UNIT/ML SUBCUT SCH ×5 (08:11→21:56)
[2017-02-26] MEDS: SODIUM BICARBONATE 650 MG TABLET PO SCH ×3 (08:12→21:38)
[2017-02-26] MEDS: FAMOTIDINE 20 MG TABLET PO SCH ×2 (08:12→21:38)
[2017-02-26] MEDS: POTASSIUM CHLORIDE 20 MEQ TABLET PO SCH (08:12)
[2017-02-26] MEDS: FUROSEMIDE 40 MG/4 ML VIAL IV SCH ×2 (08:13→16:51)
--- NOTE | 2017-02-26 09:15 | Hospitalist Progress Note ---
Assessment and Plan - Time spent with patient Time spent with patient: Less than 30 minutes (1) CKD (chronic kidney disease) Status: Acute Assessment and plan: Patient is being followed by Dr nicole for stage III CKD. renal ultrasound does not show any evidence of obstruction. Her creatnine is 3.4 and Bun 86 this a.m. ; patient denies any SOB throughout the night. O2 at 2 liter nasal canula in use; no acute distress noted.She has a UTI and the urine culture grew out gram negative rods patient is currently on levaquin. Current Visit: Yes (2) CHF exacerbation Status: Acute Assessment and plan: patient denies any SOB throughout the night. She states she is feeling better this a.m.; she states she done have a low grade temp 100.3 this a.m. and was treated appropriately; she denies any chills or cough at this time. Current Visit: Yes Hospitalist: Subjective Interval history: 02/26/17 - Ms Brewster 57 y/o Female very pleasant patient seen this morning; history of acute CHF, chronic kidney disease; UTI; diabetes; thrombocytopenia. Awake, Alert Ox3; without any distress noted. She is on 2l nasal cannula. She states she had a good night without any problems other than a low grade temp of 100.3 and was treated appropiately, denies fever, chills, cough, or SOB at this time. She denies any abdominal tenderness; BS present. She has not had a bowel movement for a couple of days. Lungs clear; no peripheral swelling noted ; she states her swelling has improved. Her blood sugar noted to be 222 this a.m. diabetes being managed with diabetic medications. Platelets 36 stable this a.m. up from (02/25/17 platelets at 28). She states Dr Puentes came by but nothing new at this time. He has ordered workup labs for patients thrombocytonpenia which are currently pending; CHELSIE screen is negative. Dr Nicole is following patient for renal failure; noted a.m. creatnine 3.40 and BUN 86. on 02/25 urine culture was gram negative rods: patient is on levaquin. Exam - Constitutional Vitals: Period Temp Pulse Resp BP Sys/Hernandes Pulse Ox Last 24 Hr 97.2 F-100.3 F 81-104 18-20 118-135/58-79 98-100 General appearance: normal weight Exam: no peripheral edema was noted Denies SOB, cough, chills. Had a low grade temp this a.m. 100.3 and treated appropriately - Head Head exam: Present: normal inspection - Eye Eye exam: Present: EOMI - Neck Neck exam: Present: normal inspection - Respiratory Respiratory exam: Present: clear to auscultation bilaterally - Cardiovascular Cardiovascular exam: Present: regular rate and rhythm - GI/Abdominal GI/Abdominal exam: Present: normal bowel sounds, soft. Absent: guarding, tenderness - Extremities Exam Extremities exam: Present: normal inspection, full ROM - Neurological Exam Neurological exam: Present: alert, oriented X3 - Psychiatric Psychiatric exam: Present: normal affect - Skin Skin exam: Present: warm Results - Labs CBC & BMP: 02/26/17 05:01 02/26/17 05:01 Lab Results: I have reviewed the past 24 hour labs Labs: Dr Cantu is is following patient for thrombocytopenia; does not feel transfusions needed at this time. Platelets 36 is up from 28 on yesterday.
[2017-02-26 09:30] LABS: Albumin (SPE) 2.3 G/DL (3.2-5.3); Albumin (SPE) Rel % 44.8 %; Alpha 1 (SPE) 0.4 G/DL (0.1-0.4); Alpha 1 (SPE) Rel % 6.9 %; Alpha 2 (SPE) 0.8 G/DL (0.4-1.0); Alpha 2 (SPE) Rel % 16.2 %; Beta (SPE) 0.7 G/DL (0.5-1.1); Beta (SPE) Rel % 12.9 %
[2017-02-26 09:31] LABS: Gamma (SPE) Rel % 19.2 %
--- NOTE | 2017-02-26 11:50 | CT Report ---
CT head/brain wo con Indication: Status post fall, dizziness, general weakness Comparison: None Technique: Multiple axial tomographic images of the brain were obtained without the use of intravenous contrast. Findings: Midline structures are nondisplaced. There is no evidence of acute intracranial hemorrhage or hydrocephalus. Mild periventricular and subcortical hypoattenuation noted which is nonspecific but consistent with chronic microvascular ischemic change. Demyelinating process and vasculitis less likely considerations. The visualized paranasal sinuses and bilateral mastoid air cells are essentially clear. IMPRESSION: No acute intracranial abnormality demonstrated. The CT exam was performed using one or more of the following dose reduction techniques: Automated exposure control, adjustment of the mA and/or kV according to patient size, or use of iterative reconstruction technique. PROCEDURE INTERPRETED AT [facility] DEPARTMENT OF RADIOLOGY Final Report Signed by: Dr Nir Lilly
--- NOTE | 2017-02-26 14:01 | Nephrology Progress Note ---
Nephrology - PN: Subj Interval history: Ms. Brewster is seen in follow-up of her renal impairment. Her creatinine is stable. She had a spell of weakness upon standing earlier today and sat herself down without injury. She has a blood pressure of 130/80 sitting and 125 /80 standing her chest is clear and she has no edema. She has been having some low-grade temperature elevations but no high fever. She does not have nephrotic range proteinuria when measured on spot urine. We have encouraged her to be out of bed and she feels fairly well sitting up now. Screen for myeloma and serum and urine is negative. Will continue to follow but I believe most of this renal dysfunction is chronic. Exam (PN)-Nephrology - Vital Signs Vital signs: Period Temp Pulse Resp BP Sys/Hernandes Pulse Ox Last 24 Hr 97.2 F-100.3 F 81-111 18-20 118-134/58-79 98-100 - Lab 02/26/17 05:01 02/26/17 05:01 Most recent lab results Calcium 8.2 MG/DL (8.5-10.1) L 02/26/17 05:01 Magnesium 1.5 MG/DL (1.8-2.4) L 02/23/17 10:56 Assessment and Plan (1) CKD (chronic kidney disease) Status: Acute Assessment and plan: Diabetic nephropathy versus other etiology Current Visit: Yes (2) Thrombocytopenia Status: Acute Current Visit: Yes (3) Hypoalbuminemia Status: Acute Assessment and plan: Quantitate proteinuria Current Visit: Yes
[2017-02-26] MEDS: INSULIN GLARGINE 100 UNIT/ML SUBCUT SCH (21:39)
[2017-02-27 04:06] LABS: Basophils % 0.2 % (0.0-0.8); Eosinophils # 0.1 10*3/uL (0.0-0.87); Hematocrit 26.8 VOL% (35.7-47.0); Hemoglobin 9.5 GM/DL (12.0-16.0); Immature Granulocytes % 1.2 %; Immature Granulocytes Absolute 0.15 #; Lymphocytes # 1.5 10*3/uL (1.4-4.0); Lymphocytes % 11.6 % (21.3-54.2); Mean Corpuscular HGB Conc 35.4 GM/DL (32-36); Mean Corpuscular Hemoglobin 29 PG (27-34); Mean Corpuscular Volume 82.2 FL (87-102); Monocytes # 1.5 10*3/uL (0.11-0.8); Monocytes % 11.8 % (1.7-12.7); Neutrophils # 9.5 10*3/uL (1.4-7.4); Neutrophils % 74.2 % (38.7-73.9); Platelet Count 52 T/CUMM (130-400); Red Blood Count 3.26 MC/CUMM (3.8-5.5); Red Cell Distribution Width 13.1 % (9.3-17.3); White Blood Count 12.8 T/CUMM (4-12)
[2017-02-27 04:35] LABS: Band Neutrophils 2 % (0-10); Lymphocytes 11 % (20-55); Segmented Neutrophils 81 % (50-85); Total Cells Counted 100
[2017-02-27 04:36] LABS: Platelet Estimate Decreased
[2017-02-27 04:47] LABS: Alanine Aminotransferase 27 U/L (13-56); Albumin 1.9 G/DL (3.4-5.0); Alkaline Phosphatase 172 U/L (45-117); Aspartate Amino Transferase 18 U/L (0-37); Bilirubin,Total < 0.39 MG/DL (0.2-1.0); Blood Urea Nitrogen 80 MG/DL (7-18); Calcium 8.5 MG/DL (8.5-10.1); Glucose 65 MG/DL (74-106); Osmolality,Calculated 296.7 MOS/KG (273-304); Potassium 3.7 MMOL/L (3.5-5.1); Sodium 138 MMOL/L (136-145); Total Protein 5.2 G/DL (6.4-8.3)
--- NOTE | 2017-02-27 07:26 | Oncology Progress Note ---
Oncology Subjective PN Interval history: Thrombocytopenia Platelet count up to 52,000 today from 36,000 [id number]. Thrombocytopenia is improving. The antinuclear antibody is negative. Protein electrophoretic studies do not suggest an autoimmune phenomenon either. I suspect the thrombocytopenia is related to some of her medications. Anemia Hemoglobin 9.5, White cell count 12,800 Breast cancer there is no evidence of recurrence of the breast cancer Chronic renal failure probably related to diabetes mellitus and possibly aggravated by medications She has a history of chronic renal failure and really has not had good control of her diabetes mellitus which is probably causing this. Serum creatinine 3.2. Electrolytes normal. She is okay to go home anytime from my standpoint. I will need to arrange follow-up. Exam - Constitutional Vitals: Period Temp Pulse Resp BP Sys/Hernandes Pulse Ox Last 24 Hr 97.2 F-100.3 F 72-111 16-18 98-120/61-72 97-99 Results - Labs CBC & BMP: 02/27/17 03:40 02/27/17 03:40
[2017-02-27] MEDS: INSULIN REGULAR 100 UNIT/ML SUBCUT SCH ×4 (08:42→21:19)
[2017-02-27] MEDS: SODIUM BICARBONATE 650 MG TABLET PO SCH ×3 (08:43→21:23)
[2017-02-27] MEDS: POTASSIUM CHLORIDE 20 MEQ TABLET PO SCH (08:43)
[2017-02-27] MEDS: FUROSEMIDE 40 MG/4 ML VIAL IV SCH ×2 (08:44→15:05)
[2017-02-27] MEDS: FAMOTIDINE 20 MG TABLET PO SCH ×2 (08:44→21:23)
--- NOTE | 2017-02-27 09:47 | Hospitalist Progress Note ---
Assessment and Plan (1) CKD (chronic kidney disease) Status: Acute Assessment and plan: 02/27/17 - Dr Ambriz is folloing patient for Stage III CKD. BUN 80 and Creatitine 3.20 down - from 86 and 3.40; potassium 6.1 from 5.7; will repeat labs in a.m. and monitor closely. will continue levaquin for UTI- awaiting final urine culture results Patient is being followed by Dr ambriz for stage III CKD. renal ultrasound does not show any evidence of obstruction. Her creatnine is 3.4 and Bun 86 this a.m. ; patient denies any SOB throughout the night. O2 at 2 liter nasal canula in use; no acute distress noted.She has a UTI and the urine culture grew out gram negative rods patient is currently on levaquin. Current Visit: Yes (2) CHF exacerbation Status: Acute Assessment and plan: 02/27/17 - patient denies any fever or chills. she reports an o.k. night with out any events. patient denies any SOB throughout the night. She states she is feeling better this a.m.; she states she done have a low grade temp 100.3 this a.m. and was treated appropriately; she denies any chills or cough at this time. Current Visit: Yes (3) Thrombocytopenia Status: Acute Assessment and plan: Dr Cantu is following patient for thrombocytopenia. Platelets are up to 52 from 36; I agree with Dr Cantu thrombocytopenia is improving; he does not see any evidence of recurrence of breast cancer. He believes the is related to her medications. will need to arrange a follow-up appointment with Dr Cantu for discharge. Current Visit: Yes Hospitalist: Subjective Interval history: 02/27/17 - Ms Brewster 61 y/o Female very pleasant this a.m with acute CHF, CKD, UTI , Diabetes, thrombocytopenia. She had a significant spell of feeling dizzy on the way to the bathroom and had to sit in the floor. CT of head was done and nothing acute was found. Patient denies any problems for the rest of the day/ night; she has gotten up to the bathroom a few times since the incident and had NOT experienced any weakness or dizziness. She still feels weak at times but verbalized she had a good night. WBC up 12.8 - from 11.3 H&H down 9.5 and 26.8 - from 10.0 and 28.6 BUN down 80 - from 86 Creatinine down 3.28 - from 3.40 Glucose 130 alkaline phos up 172 - from 165 Protein 5.2 Albumin down 1.9 - from 2.1 Exam - Constitutional Vitals: Period Temp Pulse Resp BP Sys/Hernandes Pulse Ox Last 24 Hr 97.2 F-99.7 F 72-111 16-18 98-120/61-72 97-100 General appearance: normal weight - Head Head exam: Present: normal inspection - Eye Eye exam: Present: EOMI Pupils: Present: MARIO - Neck Neck exam: Present: normal inspection - Respiratory Respiratory exam: Present: clear to auscultation bilaterally - Cardiovascular Cardiovascular exam: Present: regular rate and rhythm - GI/Abdominal GI/Abdominal exam: Present: normal bowel sounds. Absent: guarding, tenderness, rebound - Extremities Exam Extremities exam: Present: normal inspection, full ROM. Absent: calf tenderness , edema - Neurological Exam Neurological exam: Present: alert, oriented X3 - Psychiatric Psychiatric exam: Present: normal affect - Skin Skin exam: Present: normal color, warm, dry Results - Labs CBC & BMP: 02/27/17 03:40 02/27/17 03:40 Lab Results: I have reviewed the past 24 hour labs - Diagnostic Findings Procedure: CT: report reviewed by me (head CT: 02/26/17 - no acute intracranial abnormality demonstrated) Specialty Discharge - Follow Up or Referrals Follow up with: Uzair Cantu MD [Physician] - - Speciality Discharge Instructions Hospitalist Instructions: will need a follow-up appointment with Dr Cantu after discharge.
[2017-02-27] MEDS: LEVOFLOXACIN INJ 500 MG in PREMIX 1 EACH IV SCH (12:13)
[2017-02-27] MEDS: MEROPENEM 500 MG in SODIUM CHLORIDE 0.9% 100 ML IV SCH ×2 (13:32→15:05)
--- NOTE | 2017-02-27 15:35 | Nephrology Progress Note ---
Nephrology - PN: Subj Interval history: Ms. Brewster is seen in follow-up for chronic renal impairment. The acute component is improving and her creatinine is fallen now down to 3.2. I suspect she is near her baseline. Platelet count continues to improve off lisinopril and hydrochlorothiazide. She feels well and has been able to walk in the frazier today. She is hoping to be able to live hospital and go either home or to [facility] soon. I think that would be reasonable. Her chest is clear and blood pressures 120 systolic sitting in a chair. Exam (PN)-Nephrology - Vital Signs Vital signs: Period Temp Pulse Resp BP Sys/Hernandes Pulse Ox Last 24 Hr 97.2 F-98.3 F 72-93 16-20 98-120/61-72 97-100 - Lab 02/27/17 03:40 02/27/17 03:40 Most recent lab results Calcium 8.5 MG/DL (8.5-10.1) 02/27/17 03:40 Magnesium 1.5 MG/DL (1.8-2.4) L 02/23/17 10:56 Assessment and Plan (1) CKD (chronic kidney disease) Status: Acute Assessment and plan: Diabetic nephropathy versus other etiology Current Visit: Yes (2) Thrombocytopenia Status: Acute Current Visit: Yes (3) Hypoalbuminemia Status: Acute Assessment and plan: Quantitate proteinuria Current Visit: Yes Specialty Discharge - Follow Up or Referrals Follow up with: Uzair Cantu MD [Physician] -
[2017-02-27] MEDS: INSULIN GLARGINE 100 UNIT/ML SUBCUT SCH (21:21)
[2017-02-28] MEDS: MEROPENEM 500 MG in SODIUM CHLORIDE 0.9% 100 ML IV SCH ×2 (02:07→14:31)
[2017-02-28 04:54] LABS: Basophils % 0.2 % (0.0-0.8); Eosinophils # 0.1 10*3/uL (0.0-0.87); Eosinophils % 0.9 % (0.00-10.9); Hematocrit 25.6 VOL% (35.7-47.0); Hemoglobin 8.9 GM/DL (12.0-16.0); Immature Granulocytes % 1.1 %; Immature Granulocytes Absolute 0.11 #; Lymphocytes # 1.1 10*3/uL (1.4-4.0); Lymphocytes % 10.5 % (21.3-54.2); Mean Corpuscular HGB Conc 34.8 GM/DL (32-36); Mean Corpuscular Hemoglobin 29 PG (27-34); Mean Corpuscular Volume 82.8 FL (87-102); Monocytes # 1.4 10*3/uL (0.11-0.8); Monocytes % 13.9 % (1.7-12.7); Neutrophils # 7.6 10*3/uL (1.4-7.4); Neutrophils % 73.4 % (38.7-73.9); Platelet Count 89 T/CUMM (130-400); Red Blood Count 3.09 MC/CUMM (3.8-5.5); Red Cell Distribution Width 13.2 % (9.3-17.3); White Blood Count 10.4 T/CUMM (4-12)
[2017-02-28 05:27] LABS: Bilirubin,Total 0.4 MG/DL (0.2-1.0); Calcium 7.6 MG/DL (8.5-10.1); Osmolality,Calculated 306.5 MOS/KG (273-304); Potassium 4.8 MMOL/L (3.5-5.1); Total Protein 5.4 G/DL (6.4-8.3)
[2017-02-28 05:29] LABS: Band Neutrophils 4 % (0-10); Lymphocytes 7 % (20-55); Myelocytes 6 %; Segmented Neutrophils 81 % (50-85)
[2017-02-28 05:30] LABS: Platelet Estimate Decreased; Total Cells Counted 100
--- NOTE | 2017-02-28 06:40 | Oncology Progress Note ---
Oncology Subjective PN Interval history: I have been following Ms. Brewster for breast cancer that apparently has not recurred. She was admitted with dyspnea and apparently with congestive heart failure. She has diabetes mellitus and she has developed chronic renal failure and I had recommended referral for evaluation by a cellular equipment repairer. Dr. Ambriz is seeing her now. Blood work today includes white cell count of 10,400 with a hemoglobin of 8.9 and the platelet count is up to 89,000. I feel very certain that the thrombocytopenia was related to the hydrochlorothiazide and that lisinopril may have been a contributing factor as well. I recommend controlling her blood pressure with medications other than these 2. Furosemide could be used as a diuretic. I would avoid ABY and ARB inhibitors on this patient but I would also want Dr. mAbriz's opinion concerning this matter. From my standpoint she can go home anytime. She should already have an appointment to see me in follow-up. If she does not, have the nurses call my office. Exam - Constitutional Vitals: Period Temp Pulse Resp BP Sys/Hernandes Pulse Ox Last 24 Hr 96.3 F-98.9 F 76-95 16-20 103-122/64-70 98-100 Results - Labs CBC & BMP: 02/28/17 04:37 02/28/17 04:37 Specialty Discharge - Follow Up or Referrals Follow up with: Uzair Cantu MD [Physician] -
[2017-02-28] MEDS: FUROSEMIDE 40 MG/4 ML VIAL IV SCH ×2 (09:07→15:51)
[2017-02-28] MEDS: SODIUM BICARBONATE 650 MG TABLET PO SCH ×3 (09:08→21:04)
[2017-02-28] MEDS: FAMOTIDINE 20 MG TABLET PO SCH ×2 (09:08→21:04)
[2017-02-28] MEDS: POTASSIUM CHLORIDE 20 MEQ TABLET PO SCH (09:08)
[2017-02-28] MEDS: INSULIN REGULAR 100 UNIT/ML SUBCUT SCH (09:15)
[2017-02-28] MEDS ORDERED: DEXTROSE 50% 25 GM/50 ML VIAL IV PRN (09:17)
[2017-02-28] MEDS ORDERED: GLUCAGON 1 MG VIAL IM PRN (09:17)
--- NOTE | 2017-02-28 09:29 | Nephrology Progress Note ---
Nephrology - PN: Subj Interval history: Ms. Brewster is seen in follow-up of her chronic renal impairment. Creatinine is in the same range at 3.4 and she has a clear chest and no significant edema. Her platelet count has risen since she stopped hydrochlorothiazide. She should stay off hydrochlorothiazide and I agree that she probably should avoid ABY and arms for now. She is hoping to be discharged and I think that is reasonable. She has been following her renal function with Dr. Doyle at the [facility] and I think that is reasonable to continue. Exam (PN)-Nephrology - Vital Signs Vital signs: Period Temp Pulse Resp BP Sys/Hernandes Pulse Ox Last 24 Hr 96.3 F-98.9 F 80-95 16-20 103-139/64-70 98-99 - Lab 02/28/17 04:37 02/28/17 07:37 Most recent lab results Calcium 7.6 MG/DL (8.5-10.1) L 02/28/17 04:37 Magnesium 1.5 MG/DL (1.8-2.4) L 02/23/17 10:56 Assessment and Plan (1) CKD (chronic kidney disease) Status: Acute Assessment and plan: Diabetic nephropathy versus other etiology Current Visit: Yes (2) Thrombocytopenia Status: Acute Current Visit: Yes (3) Hypoalbuminemia Status: Acute Assessment and plan: Quantitate proteinuria Current Visit: Yes Specialty Discharge - Follow Up or Referrals Follow up with: Uzair Cantu MD [Physician] -
[2017-02-28] MEDS: INSULIN LISPRO 100 UNIT/ML SUBCUT SCH ×4 (09:45→21:03)
--- NOTE | 2017-02-28 14:25 | Hospitalist Progress Note ---
Assessment and Plan (1) CHF exacerbation Status: Acute Assessment and plan: 1)acute systolic CHF on chronic- diuresing and symptoms improving. She is feeling better. 2)CKD- she is seeing Dr Koo as an outpatient, the last time a week or so ago. He plans to follow up with her in 6 months. 3)thrombocytopenia- platelets 28,000. Dr Cantu her oncologist is working this up. He recommends avoid HCTZ and lisinopril which contributed to her low platelets. 4)leukocytosis- resolved. 5)UTI- on Merrem now to cover Enterobacter and ESBL Ecoli. 6)DM- HGB A1C- 9.1. on SSI. glucose this morning over 500 after getting juice, candy, cereal etc for a low sugar this morning. 7)transfer to [facility] for Merrem. We have called this morning at 10 but have not received a return call. Current Visit: Yes (2) Acute renal failure Status: Acute Current Visit: Yes (3) History of breast cancer Status: Acute Current Visit: Yes (4) UTI (urinary tract infection) Status: Acute Current Visit: Yes (5) Thrombocytopenia Status: Acute Current Visit: Yes (6) Leukocytosis Status: Acute Current Visit: Yes Hospitalist: Subjective Interval history: Mrs Brwester is feeling better but needs to have about a week more of IV Merrem for her UTIs. She is up and around in the room without weakness. Exam - Constitutional Vitals: Period Temp Pulse Resp BP Sys/Hernandes Pulse Ox Last 24 Hr 96.3 F-98.9 F 80-95 16-20 103-139/64-73 98-99 General appearance: normal weight, no acute distress - Eye Eye exam: Present: EOMI. Absent: scleral icterus - Respiratory Respiratory exam: Present: clear to auscultation bilaterally - Cardiovascular Cardiovascular exam: Present: regular rate and rhythm - GI/Abdominal GI/Abdominal exam: Present: normal bowel sounds, soft. Absent: tenderness - Extremities Exam Extremities exam: Absent: edema - Neurological Exam Neurological exam: Present: alert, oriented X3 - Skin Skin exam: Present: warm, dry Results - Labs CBC & BMP: 02/28/17 04:37 02/28/17 07:37 Lab Results: I have reviewed the past 24 hour labs Specialty Discharge - Follow Up or Referrals Follow up with: Uzair Cantu MD [Physician] -
[2017-02-28] MEDS: INSULIN GLARGINE 100 UNIT/ML SUBCUT SCH (21:03)
[2017-03-01] MEDS: MEROPENEM 500 MG in SODIUM CHLORIDE 0.9% 100 ML IV SCH (02:41)
[2017-03-01] MEDS: INSULIN LISPRO 100 UNIT/ML SUBCUT SCH ×3 (02:46→10:13)
[2017-03-01 05:11] LABS: Basophils % 0.3 % (0.0-0.8); Eosinophils # 0.1 10*3/uL (0.0-0.87); Eosinophils % 1.3 % (0.00-10.9); Hematocrit 26.1 VOL% (35.7-47.0); Immature Granulocytes % 0.8 %; Immature Granulocytes Absolute 0.09 #; Lymphocytes # 1.7 10*3/uL (1.4-4.0); Lymphocytes % 15.9 % (21.3-54.2); Mean Corpuscular HGB Conc 34.5 GM/DL (32-36); Mean Corpuscular Hemoglobin 29 PG (27-34); Mean Corpuscular Volume 84.2 FL (87-102); Mean Platelet Volume 11.8 FL (9.6-12.0); Monocytes # 1.2 10*3/uL (0.11-0.8); Monocytes % 10.6 % (1.7-12.7); Neutrophils # 7.7 10*3/uL (1.4-7.4); Neutrophils % 71.1 % (38.7-73.9); Platelet Count 120 T/CUMM (130-400); Red Cell Distribution Width 12.9 % (9.3-17.3); White Blood Count 10.9 T/CUMM (4-12)
[2017-03-01 05:46] LABS: Albumin 2.1 G/DL (3.4-5.0); Bilirubin,Total 0.5 MG/DL (0.2-1.0); Calcium 7.9 MG/DL (8.5-10.1); Osmolality,Calculated 299.8 MOS/KG (273-304); Potassium 4.7 MMOL/L (3.5-5.1); Total Protein 5.7 G/DL (6.4-8.3)
--- NOTE | 2017-03-01 07:57 | Discharge Summary ---
Hospital Course - Hospital Course Hospital Course: Mrs Brewster presented with pulmonary edema form reanl failure causing dyspnea and also UTI, DM, HTN, and thrombocytopenia. Her pulmonary edema resolved when the acute component of renal failure resolved with diuresis to her baseline creatinine of 3.2. She had Enterobacter in her urine form [facility] and here and was treated with levaquin. When her UCx was repeated she had ESBL EColi and her antibiotics were changed to Merrem and she will require 5-[address] more or this. Dr Ambriz consulted and she will see Dr Doyle her usual product development coordinator as an outpatient. She had thrombocytopenia and her platelets have improved to 120,000. It was likely due to infection as well as HCTZ and lisinopril- both of these have been stopped. Dr Cantu will follow up with her in his clinic. Her diabetes is poorly controlled chronically. Here she is on SSI and lantus. She will be transferred back to [facility] today where she can complete her Merrem course. - Time spent with patient Time with patient DS: Greater than 30 minutes (coordination of discharge, exam, medicine reconciliation, documentation) Diagnosis - Discharge Diagnosis (1) CHF exacerbation Status: Resolved (2) Acute renal failure Status: Resolved (3) History of breast cancer Status: Chronic (4) UTI (urinary tract infection) Status: Acute (5) Thrombocytopenia Status: Acute (6) Leukocytosis Status: Resolved (7) CKD (chronic kidney disease) stage 4, GFR 15-29 ml/min Status: Chronic Specialty Discharge - Follow Up or Referrals Follow up with: Uzair Cantu MD [Physician] - 05/27/17 7:30 am Jared Doyle Jr., MD [Physician] - (keep scheduled follow up appt) Discharge Plan - Discharge Data Disposition: Disch/Xfer-[facility] Term Hos Condition at Discharge: Stable Discharge Diet: diabetic diet, heart healthy Activity: as per physical therapy - Discharge Medications New Furosemide Inj [Lasix Inj] 40 mg IV BID DIURETIC vial Glucagon 1 mg IM PRN PRN vial PRN Reason: Hypoglycemia w/o IV access Insulin Lispro [HumaLOG] See Protocol SUBCUT Q4HR unit Meropenem [Merrem] 500 mg IV Q12H vial Dextrose 50% [D50] 25 gm IV PRN PRN vial PRN Reason: Hypoglycemia with IV access Sodium Bicarb Tab 650 mg PO TID tablet Continue Insulin Detemir [Levemir] 20 unit SUBCUT BEDTIME Aspirin [Ecotrin] 81 mg PO DAILY Tamoxifen Citrate 20 mg PO DAILY Multivitamin (Centrum) [Centrum Tab] 1 tablet PO DAILY Discontinued hydroCHLOROthiazide [Hydrochlorothiazide] 25 mg PO DAILY Glyburide/Metformin HCl [Glyburide-Metformin 5-500 mg] 2 each PO BID amLODIPine [Norvasc] 10 mg PO DAILY - Follow Up or Referral Follow Up: Uzair Cantu MD [Physician] - 05/27/17 7:30 am Jared Doyle Jr., MD [Physician] - (keep scheduled follow up appt) - Forms/Instructions Instructions: Acute Kidney Injury (DC), Urinary Tract Infection in Women (DC), Dyspnea (GEN) Exam - Constitutional Vitals: Period Temp Pulse Resp BP Sys/Hernandes Pulse Ox Last 24 Hr 98.1 F-98.6 F 78-91 12-20 120-130/64-73 97-99 General appearance: normal weight, no acute distress - Head Head exam: Present: normocephalic, atraumatic - Eye Eye exam: Present: EOMI. Absent: scleral icterus - Respiratory Respiratory exam: Present: clear to auscultation bilaterally - Cardiovascular Cardiovascular exam: Present: regular rate and rhythm - GI/Abdominal GI/Abdominal exam: Present: normal bowel sounds, soft. Absent: tenderness - Extremities Exam Extremities exam: Absent: edema Discharge Results Procedures and tests throughout hospitalization: Pending Orders 02/23/17 19:36 cdiff [C. Diff Toxins A & B] Routine 03/02/17 04:00 Comp Blood Count Auto Diff IN AM Comprehensive Metabolic Panel IN AM LDH [Lactate Dehydrogenase] IN AM 03/03/17 04:00 Comp Blood Count Auto Diff IN AM Comprehensive Metabolic Panel IN AM Labs on day of discharge: Labs from last 24 hours 03/01/17 03/01/17 03/01/17 07:48 06:26 03:07 WBC RBC Hgb Hct MCV MCH MCHC RDW Plt Count MPV Neut % (Auto) Lymph % (Auto) Blanco % (Auto) Eos % (Auto) Baso % (Auto) Neut # (Auto) Lymph # (Auto) Blanco # (Auto) Eos # (Auto) Baso # (Auto) Immature Gran % Nucleated RBC % Immature Gran # Nucleated RBCs # Sodium 137 Potassium 4.7 Chloride 99 Carbon Dioxide 26 Anion Gap 16.7 H BUN 73 H Creatinine 3.20 H GFR Calculation 15 BUN/Creatinine Ratio 22.00 H Glucose 192 H POC Glucose 182 H 150 H Calculated Osmolality 299.8 Calcium 7.9 L Total Bilirubin 0.50 AST 9 ALT 16 Alkaline Phosphatase 129 H Lactate Dehydrogenase 174 Total Protein 5.7 L Albumin 2.1 L Globulin 3.6 H Albumin/Globulin Ratio 0.5 L 03/01/17 03/01/17 02/28/17 03:07 02:40 20:48 WBC 10.9 RBC 3.10 L Hgb 9.0 L Hct 26.1 L MCV 84.2 L MCH 29 MCHC 34.5 RDW 12.9 Plt Count 120 L D MPV 11.8 Neut % (Auto) 71.1 Lymph % (Auto) 15.9 L Blanco % (Auto) 10.6 Eos % (Auto) 1.3 Baso % (Auto) 0.3 Neut # (Auto) 7.7 H Lymph # (Auto) 1.7 Blanco # (Auto) 1.2 H Eos # (Auto) 0.1 Baso # (Auto) 0.0 Immature Gran % 0.8 Nucleated RBC % 0.0 Immature Gran # 0.09 Nucleated RBCs # 0.00 Sodium Potassium Chloride Carbon Dioxide Anion Gap BUN Creatinine GFR Calculation BUN/Creatinine Ratio Glucose POC Glucose 223 H 122 H Calculated Osmolality Calcium Total Bilirubin AST ALT Alkaline Phosphatase Lactate Dehydrogenase Total Protein Albumin Globulin Albumin/Globulin Ratio 02/28/17 02/28/17 02/28/17 17:31 15:43 14:12 WBC RBC Hgb Hct MCV MCH MCHC RDW Plt Count MPV Neut % (Auto) Lymph % (Auto) Blanco % (Auto) Eos % (Auto) Baso % (Auto) Neut # (Auto) Lymph # (Auto) Blanco # (Auto) Eos # (Auto) Baso # (Auto) Immature Gran % Nucleated RBC % Immature Gran # Nucleated RBCs # Sodium Potassium Chloride Carbon Dioxide Anion Gap BUN Creatinine GFR Calculation BUN/Creatinine Ratio Glucose POC Glucose 205 H 331 H 372 H Calculated Osmolality Calcium Total Bilirubin AST ALT Alkaline Phosphatase Lactate Dehydrogenase Total Protein Albumin Globulin Albumin/Globulin Ratio 02/28/17 02/28/17 02/28/17 11:22 07:37 07:19 WBC RBC Hgb Hct MCV MCH MCHC RDW Plt Count MPV Neut % (Auto) Lymph % (Auto) Blanco % (Auto) Eos % (Auto) Baso % (Auto) Neut # (Auto) Lymph # (Auto) Blanco # (Auto) Eos # (Auto) Baso # (Auto) Immature Gran % Nucleated RBC % Immature Gran # Nucleated RBCs # Sodium Potassium Chloride Carbon Dioxide Anion Gap BUN Creatinine GFR Calculation BUN/Creatinine Ratio Glucose 497 H POC Glucose 423 H > 500 H* Calculated Osmolality Calcium Total Bilirubin AST ALT Alkaline Phosphatase Lactate Dehydrogenase Total Protein Albumin Globulin Albumin/Globulin Ratio 02/28/17 02/28/17 02/27/17 02:14 01:47 20:18 WBC RBC Hgb Hct MCV MCH MCHC RDW Plt Count MPV Neut % (Auto) Lymph % (Auto) Blanco % (Auto) Eos % (Auto) Baso % (Auto) Neut # (Auto) Lymph # (Auto) Blanco # (Auto) Eos # (Auto) Baso # (Auto) Immature Gran % Nucleated RBC % Immature Gran # Nucleated RBCs # Sodium Potassium Chloride Carbon Dioxide Anion Gap BUN Creatinine GFR Calculation BUN/Creatinine Ratio Glucose POC Glucose 188 H 63 L 388 H Calculated Osmolality Calcium Total Bilirubin AST ALT Alkaline Phosphatase Lactate Dehydrogenase Total Protein Albumin Globulin Albumin/Globulin Ratio 02/27/17 02/27/17 15:32 11:18 WBC RBC Hgb Hct MCV MCH MCHC RDW Plt Count MPV Neut % (Auto) Lymph % (Auto) Blanco % (Auto) Eos % (Auto) Baso % (Auto) Neut # (Auto) Lymph # (Auto) Blanco # (Auto) Eos # (Auto) Baso # (Auto) Immature Gran % Nucleated RBC % Immature Gran # Nucleated RBCs # Sodium Potassium Chloride Carbon Dioxide Anion Gap BUN Creatinine GFR Calculation BUN/Creatinine Ratio Glucose POC Glucose 440 H 339 H Calculated Osmolality Calcium Total Bilirubin AST ALT Alkaline Phosphatase Lactate Dehydrogenase Total Protein Albumin Globulin Albumin/Globulin Ratio DS: Provider Date of admission: 02/23/17 10:26 Primary care physician: Samina Evans MD Attending physician on admission: Zoë Rangel MD Consults: 02/23/17 12:35 Consult to Physician [CONS] Routine Comment: low plt, very high wbc Consulting Provider: Uzair Naylor Person Notified: DR NAYLOR Date Notified: 02/23/17 Time Notified: 13:30 Consult Notification Comment: PUT ON LIST AND WILL SEE SUN AM. GET CBC DAILY X3 02/25/17 09:28 Consult to Physician [CONS] Routine Comment: Worsening renal failure Consulting Provider: Jose Ambriz Consult to Specialist Group: Nephrology Person Notified: ANTONINA Date Notified: 02/25/17 Time Notified: 10:15 02/26/17 13:37 Consult to Occupational Therapy [CONS] Routine Reason for Occupational Therapy: Evaluate and Treat Consult to Physical Therapy [CONS] Routine Reason for Physical Therapy: Evaluate and Treat 02/27/17 13:10 Consult to Pharmacy [CONS] Routine Reason for Pharmacy Consult: Dose/Manage Antibiotics Comment: please adjust antibiotic doses for renal disease Discharging clinician: Estefany Nicole MD
[2017-03-01] MEDS: SODIUM BICARBONATE 650 MG TABLET PO SCH (08:43)
[2017-03-01] MEDS: POTASSIUM CHLORIDE 20 MEQ TABLET PO SCH (08:43)
[2017-03-01] MEDS: FUROSEMIDE 40 MG/4 ML VIAL IV SCH (08:43)
[2017-03-01] MEDS: FAMOTIDINE 20 MG TABLET PO SCH (08:43)
[2017-03-01 11:51] VITALS: BP 130/74
== END 2017-03-01 11:50 | disposition hospice, home (50) | DRG 291 ==
LOC: N.CC 09:33 → SUATTDRO 10:26 → N.TELEN 02-24 13:01
PROVIDERS: ADMIT Internal Medicine; ATTEND Internal Medicine

== ENCOUNTER 2020-06-27 10:28 | Observation (INO) ==
[2020-06-27] MEDS ORDERED: MAGNESIUM SULF RIDER 4 GM in PREMIX 1 EACH IV PRN (11:27)
[2020-06-27] MEDS ORDERED: POTASSIUM CHLORIDE 20 MEQ TABLET PO PRN (11:27)
[2020-06-27] MEDS ORDERED: ONDANSETRON 4 MG/2 ML VIAL IV PRN (11:27)
[2020-06-27] MEDS ORDERED: MAGNESIUM SULF RIDER 2 GM in PREMIX 1 EACH IV PRN (11:27)
[2020-06-27] MEDS ORDERED: ZALEPLON 5 MG CAPSULE PO PRN (11:27)
[2020-06-27] MEDS ORDERED: NICOTINE 21 MG/24 HR PATCH TRANSDERM PRN (11:27)
[2020-06-27] MEDS ORDERED: diphenhydrAMINE CAP 25 MG CAPSULE PO PRN (11:27)
[2020-06-27] MEDS ORDERED: guaiFENesin/DM ER 600-30 MG TABLET PO PRN (11:27)
[2020-06-27] MEDS ORDERED: PROMETHAZINE 25 MG TABLET PO PRN (11:27)
[2020-06-27] MEDS ORDERED: hydrALAZINE 20 MG/1 ML VIAL IV PRN (11:27)
[2020-06-27] MEDS ORDERED: DOCUSATE SODIUM 100 MG CAPSULE PO PRN (11:27)
[2020-06-27] MEDS ORDERED: ALBUTEROL 2.5 MG/3 ML NEB RESP TX SCH (13:00)
[2020-06-27] MEDS ORDERED: ALBUTEROL/IPRATROPIUM 3 ML NEB RESP TX SCH (13:00)
[2020-06-27] MEDS ORDERED: DEXTROSE 50% 25 GM/50 ML VIAL IV PRN (13:47)
[2020-06-27] MEDS ORDERED: GLUCAGON 1 MG VIAL IM PRN (13:47)
[2020-06-27 13:56] LABS: Basophils # 0.1 10*3/uL (0.0-0.2); Basophils % 0.7 % (0.0-0.8); Eosinophils # 0.1 10*3/uL (0.0-0.87); Eosinophils % 1.3 % (0.00-10.9); Hemoglobin 10.4 GM/DL (12.0-16.0); Immature Granulocytes % 0.4 %; Immature Granulocytes Absolute 0.03 #; Lymphocytes # 1.2 10*3/uL (1.4-4.0); Lymphocytes % 16.9 % (21.3-54.2); Mean Corpuscular HGB Conc 34.7 GM/DL (32-36); Mean Corpuscular Volume 85.2 FL (87-102); Mean Platelet Volume 10.8 FL (9.6-12.0); Monocytes % 6.2 % (1.7-12.7); Neutrophils % 74.5 % (38.7-73.9); Platelet Count 263 T/CUMM (130-400); Red Blood Count 3.52 MC/CUMM (3.8-5.5); Red Cell Distribution Width 12.4 % (9.3-17.3); White Blood Count 6.8 T/CUMM (4-12)
[2020-06-27 14:28] LABS: Albumin 3.1 G/DL (3.4-5.0); Bilirubin,Total 0.4 MG/DL (0.2-1.0); Calcium 8.9 MG/DL (8.5-10.1); Osmolality,Calculated 282.7 MOS/KG (273-304); Risk Ratio 2.54; Thyroid Stimulating Hormone 1.28 uIU/ml (0.358-3.74)
[2020-06-27] MEDS ORDERED: NITROGLYCERIN SL 0.4 MG TABLET SL PRN (14:36)
[2020-06-27] MEDS ORDERED: ALBUTEROL/IPRATROPIUM 3 ML NEB RESP TX PRN (14:38)
[2020-06-27] MEDS: INSULIN LISPRO 100 UNIT/ML SUBCUT SCH ×2 (16:18→22:25)
[2020-06-27 18:20] LABS: Bacteria,Urine Occasional /HPF (Few); Bilirubin,Urine Negative (Negative); Blood, Urine Negative (Negative); Glucose,Urine (UA) >=500 mg/dL (Negative); Hyaline Casts,Urine 3 /LPF (0-3); Ketones,Urine Negative (Negative); Mucus,Urine Occasional /LPF (Occasional); Nitrite,Urine Negative (Negative); Protein,Urine 100 MG/DL; RBC,Urine 1 /HPF (0-4); Squamous Epithelial Cell,Urine Occasional /HPF (0-10); Urine Appearance CLEAR (Clear); Urine Color Yellow (Yellow); Urine Specific Gravity 1.008 (1.001-1.035); Urine Urobilinogen < 2.0 EU/DL (0.2-1.0); WBC,Urine 1 /HPF (0-6)
[2020-06-27] MEDS ORDERED: INSULIN GLARGINE 100 UNIT/ML SUBCUT SCH (21:00)
[2020-06-27] MEDS ORDERED: ROSUVASTATIN 20 MG TABLET PO SCH (21:00)
[2020-06-27] MEDS: carvediloL 25 MG TABLET PO SCH (22:24)
[2020-06-27] MEDS: TICAGRELOR 90 MG TABLET PO SCH (22:25)
[2020-06-28 05:50] LABS: Basophils % 0.6 % (0.0-0.8); Eosinophils # 0.2 10*3/uL (0.0-0.87); Eosinophils % 2.4 % (0.00-10.9); Hematocrit 28.8 VOL% (35.7-47.0); Hemoglobin 9.9 GM/DL (12.0-16.0); Immature Granulocytes % 0.3 %; Immature Granulocytes Absolute 0.02 #; Lymphocytes # 1.4 10*3/uL (1.4-4.0); Lymphocytes % 21.2 % (21.3-54.2); Mean Corpuscular HGB Conc 34.4 GM/DL (32-36); Mean Corpuscular Volume 85.2 FL (87-102); Mean Platelet Volume 10.6 FL (9.6-12.0); Monocytes % 8.1 % (1.7-12.7); Neutrophils % 67.4 % (38.7-73.9); Platelet Count 273 T/CUMM (130-400); Red Blood Count 3.38 MC/CUMM (3.8-5.5); Red Cell Distribution Width 12.4 % (9.3-17.3); White Blood Count 6.6 T/CUMM (4-12)
[2020-06-28 06:24] LABS: Blood Urea Nitrogen 33 MG/DL (7-18); Calcium 8.9 MG/DL (8.5-10.1); Estimated Glom Filtration Rate 17 ML/MIN; Glucose 157 MG/DL (74-106); Osmolality,Calculated 279.1 MOS/KG (273-304); Troponin I 0.021 NG/ML (0.00-0.045)
[2020-06-28] MEDS ORDERED: INSULIN LISPRO 100 UNIT/ML SUBCUT SCH ×2 (07:30→11:30)
[2020-06-28] MEDS ORDERED: MULTIVITAMIN (CENTRUM) TABLET PO SCH (09:00)
[2020-06-28] MEDS ORDERED: PANTOPRAZOLE 40 MG TABLET PO SCH (09:00)
[2020-06-28] MEDS ORDERED: POTASSIUM CHLORIDE 10 MEQ TABLET PO SCH (09:00)
[2020-06-28] MEDS ORDERED: ASPIRIN EC 81 MG TABLET PO SCH (09:00)
[2020-06-28] MEDS ORDERED: ALOGLIPTIN 25 MG PO SCH (09:00)
[2020-06-28] MEDS: INSULIN LISPRO 100 UNIT/ML SUBCUT SCH ×2 (09:33→12:25)
[2020-06-28] MEDS: TICAGRELOR 90 MG TABLET PO SCH (09:34)
[2020-06-28] MEDS: carvediloL 25 MG TABLET PO SCH (09:34)
[2020-06-28 14:21] VITALS: BP 134/67
== END 2020-06-28 15:21 | disposition home or self-care (01) ==
LOC: N.TELES
PROVIDERS: ADMIT Internal Medicine Cardiovascular Disease; ATTEND Internal Medicine Cardiovascular Disease

== ENCOUNTER 2021-06-20 18:58 | Observation (INO) ==
[2021-06-20] MEDS ORDERED: hydrALAZINE 20 MG/1 ML VIAL IV STA ×2 (19:53→19:55)
[2021-06-20] MEDS ORDERED: NITROGLYCERIN SL 0.4 MG TABLET SL STA (20:47)
[2021-06-20] MEDS ORDERED: ACETAMINOPHEN 325 MG TABLET PO PRN (21:38)
[2021-06-20] MEDS ORDERED: ONDANSETRON 4 MG/2 ML VIAL IV PRN (21:38)
[2021-06-20] MEDS ORDERED: DEXTROSE 50% 25 GM/50 ML VIAL IV PRN (21:38)
[2021-06-20] MEDS ORDERED: GLUCAGON 1 MG VIAL IM PRN (21:38)
[2021-06-20] MEDS ORDERED: DOCUSATE SODIUM 100 MG CAPSULE PO PRN (21:38)
[2021-06-20] MEDS ORDERED: MORPHINE 2 MG/1 ML SYRINGE IV PRN (21:38)
[2021-06-20] MEDS ORDERED: NITROGLYCERIN SL 0.4 MG TABLET SL PRN (22:15)
[2021-06-20] MEDS: hydrALAZINE 20 MG/1 ML VIAL IV PRN (22:52)
[2021-06-20] MEDS ORDERED: FUROSEMIDE 20 MG TABLET PO SCH (23:00)
[2021-06-20] MEDS ORDERED: LACTATED RINGERS 1,000 ML IV SCH (23:45)
[2021-06-21] MEDS ORDERED: cloNIDine 0.1 MG TABLET PO STA (00:30)
[2021-06-21 02:40] LABS: Basophils % 0.8 % (0.0-0.8); Eosinophils # 0.1 10*3/uL (0.0-0.87); Eosinophils % 1.9 % (0.00-10.9); Hematocrit 22.8 VOL% (35.7-47.0); Hemoglobin 7.2 GM/DL (12.0-16.0); Immature Granulocytes % 0.6 %; Immature Granulocytes Absolute 0.03 #; Lymphocytes # 1.3 10*3/uL (1.4-4.0); Lymphocytes % 26.3 % (21.3-54.2); Mean Corpuscular HGB Conc 31.6 GM/DL (32-36); Mean Corpuscular Volume 92.3 FL (87-102); Mean Platelet Volume 10.1 FL (9.6-12.0); Monocytes % 9.8 % (1.7-12.7); Neutrophils % 60.6 % (38.7-73.9); Platelet Count 276 T/CUMM (130-400); Red Blood Count 2.47 MC/CUMM (3.8-5.5); White Blood Count 4.8 T/CUMM (4-12)
[2021-06-21] MEDS: ROSUVASTATIN 20 MG TABLET PO SCH ×2 (02:55→21:21)
[2021-06-21] MEDS ORDERED: ROSUVASTATIN 20 MG TABLET PO ONE (03:00)
[2021-06-21 03:08] LABS: Calcium 8.5 MG/DL (8.5-10.1); Osmolality,Calculated 296.1 MOS/KG (273-304); Potassium 3.4 MMOL/L (3.5-5.1); Risk Ratio 3.53
[2021-06-21] MEDS: HEPARIN 5,000 UNIT/1 ML VIAL SUBCUT SCH ×3 (03:21→15:11)
[2021-06-21] MEDS ORDERED: POTASSIUM CHLORIDE 20 MEQ TABLET PO ONE (08:00)
[2021-06-21] MEDS ORDERED: FUROSEMIDE 20 MG TABLET PO SCH (08:00)
[2021-06-21] MEDS ORDERED: SODIUM CHLORIDE 0.9% 1,000 ML IV PRN (08:01)
[2021-06-21] MEDS: MULTIVITAMIN (CENTRUM) TABLET PO SCH (08:42)
[2021-06-21] MEDS: ASPIRIN EC 81 MG TABLET PO SCH (08:43)
[2021-06-21] MEDS: POTASSIUM CHLORIDE 10 MEQ TABLET PO SCH (08:43)
[2021-06-21] MEDS: carvediloL 25 MG TABLET PO SCH ×2 (08:43→21:20)
[2021-06-21] MEDS: INSULIN LISPRO 100 UNIT/ML SUBCUT SCH ×6 (08:43→21:21)
[2021-06-21 08:47] LABS: % Iron Saturation 17.2 % (18-50); Ferritin 69.3 ng/mL (8-252)
[2021-06-21] MEDS ORDERED: OLMESARTAN 5 MG TABLET PO SCH (09:00)
[2021-06-21] MEDS ORDERED: TICAGRELOR 60 MG PO SCH (09:00)
[2021-06-21 09:01] LABS: Folate > 24.00 NG/ML (5.38-24.0); Vitamin B12 510 PG/ML (211-911)
[2021-06-21] MEDS ORDERED: INFLUENZA VIRUS VACCINE 0.5 ML SYRINGE IM ONE (09:01)
[2021-06-21] MEDS ORDERED: PNEUMOCOCCAL VACCINE (23 VALENT) 0.5 ML VIAL IM ONE (09:01)
[2021-06-21] MEDS ORDERED: cloNIDine 0.1 MG TABLET PO PRN (09:40)
[2021-06-21 18:50] LABS: Hematocrit 29.6 VOL% (35.7-47.0); Hemoglobin 9.3 GM/DL (12.0-16.0)
[2021-06-21] MEDS: FERROUS SULFATE 325 MG TABLET PO SCH (21:21)
[2021-06-21] MEDS: DOXAZOSIN 1 MG TABLET PO SCH (21:21)
[2021-06-21] MEDS: INSULIN GLARGINE 100 UNIT/ML SUBCUT SCH (22:06)
[2021-06-21] MEDS: hydrALAZINE 20 MG/1 ML VIAL IV PRN (22:40)
[2021-06-22] MEDS: HEPARIN 5,000 UNIT/1 ML VIAL SUBCUT SCH ×2 (03:52→15:21)
[2021-06-22 05:40] LABS: Basophils % 0.8 % (0.0-0.8); Eosinophils # 0.2 10*3/uL (0.0-0.87); Eosinophils % 3.2 % (0.00-10.9); Hematocrit 26.9 VOL% (35.7-47.0); Hemoglobin 8.6 GM/DL (12.0-16.0); Immature Granulocytes % 0.4 %; Immature Granulocytes Absolute 0.02 #; Lymphocytes # 1.2 10*3/uL (1.4-4.0); Lymphocytes % 22.9 % (21.3-54.2); Mean Corpuscular Volume 92.1 FL (87-102); Mean Platelet Volume 10.4 FL (9.6-12.0); Monocytes % 11.4 % (1.7-12.7); Neutrophils % 61.3 % (38.7-73.9); Platelet Count 273 T/CUMM (130-400); Red Blood Count 2.92 MC/CUMM (3.8-5.5); Red Cell Distribution Width 13.2 % (9.3-17.3); White Blood Count 5.3 T/CUMM (4-12)
[2021-06-22 06:00] LABS: Calcium 8.5 MG/DL (8.5-10.1); Potassium 3.8 MMOL/L (3.5-5.1)
[2021-06-22 06:02] LABS: Uric Acid 7.2 MG/DL (2.6-6.0)
[2021-06-22 06:08] LABS: Protein/Creatinine Ratio,Urine 7.2 RATIO
[2021-06-22] MEDS: MULTIVITAMIN (CENTRUM) TABLET PO SCH (08:35)
[2021-06-22] MEDS: FERROUS SULFATE 325 MG TABLET PO SCH ×2 (08:35→21:18)
[2021-06-22] MEDS: carvediloL 25 MG TABLET PO SCH ×2 (08:35→21:18)
[2021-06-22] MEDS: ASPIRIN EC 81 MG TABLET PO SCH (08:35)
[2021-06-22] MEDS: cloNIDine 0.1 MG TABLET PO SCH ×3 (08:35→21:18)
[2021-06-22] MEDS: POTASSIUM CHLORIDE 10 MEQ TABLET PO SCH (08:35)
[2021-06-22] MEDS: INSULIN LISPRO 100 UNIT/ML SUBCUT SCH ×6 (08:36→21:19)
[2021-06-22] MEDS: DOXAZOSIN 1 MG TABLET PO SCH (21:18)
[2021-06-22] MEDS: ROSUVASTATIN 20 MG TABLET PO SCH (21:18)
[2021-06-22] MEDS: INSULIN GLARGINE 100 UNIT/ML SUBCUT SCH (21:19)
[2021-06-23] MEDS: HEPARIN 5,000 UNIT/1 ML VIAL SUBCUT SCH ×2 (02:13→17:18)
[2021-06-23 05:58] LABS: Basophils # 0.1 10*3/uL (0.0-0.2); Basophils % 1.1 % (0.0-0.8); Eosinophils # 0.2 10*3/uL (0.0-0.87); Eosinophils % 3.9 % (0.00-10.9); Hematocrit 25.1 VOL% (35.7-47.0); Hemoglobin 8.1 GM/DL (12.0-16.0); Immature Granulocytes % 0.5 %; Immature Granulocytes Absolute 0.02 #; Lymphocytes # 1.2 10*3/uL (1.4-4.0); Lymphocytes % 26.7 % (21.3-54.2); Mean Corpuscular HGB Conc 32.3 GM/DL (32-36); Mean Corpuscular Volume 92.6 FL (87-102); Mean Platelet Volume 11.4 FL (9.6-12.0); Monocytes % 11.8 % (1.7-12.7); Platelet Count 227 T/CUMM (130-400); Red Blood Count 2.71 MC/CUMM (3.8-5.5); Red Cell Distribution Width 13.2 % (9.3-17.3); White Blood Count 4.4 T/CUMM (4-12)
[2021-06-23 06:31] LABS: Calcium 8.2 MG/DL (8.5-10.1); Osmolality,Calculated 289.5 MOS/KG (273-304)
[2021-06-23] MEDS: INSULIN LISPRO 100 UNIT/ML SUBCUT SCH ×5 (08:41→17:08)
[2021-06-23] MEDS: POTASSIUM CHLORIDE 10 MEQ TABLET PO SCH (09:47)
[2021-06-23] MEDS: cloNIDine 0.1 MG TABLET PO SCH ×2 (09:47→17:18)
[2021-06-23] MEDS: FERROUS SULFATE 325 MG TABLET PO SCH (09:47)
[2021-06-23] MEDS: carvediloL 25 MG TABLET PO SCH (09:47)
[2021-06-23] MEDS: MULTIVITAMIN (CENTRUM) TABLET PO SCH (09:48)
[2021-06-23] MEDS: ASPIRIN EC 81 MG TABLET PO SCH (09:48)
[2021-06-23 17:59] VITALS: BP 142/68
== END 2021-06-23 18:27 | disposition home or self-care (01) ==
LOC: EDBD → EDUNIT# → N.EDINP 18:58 → N.ED 18:58 → N.EDINP 06-21 01:12 → N.TELES 06-21 01:51
PROVIDERS: ADMIT Internal Medicine; ATTEND Internal Medicine